=== PATIENT | female | born 1960 | race Caucasian/White ===

== ENCOUNTER 2024-01-19 21:16 | Inpatient (IN) | payer BC, SELFPAY ==
[2024-01-19 17:31] VITALS: BP 135/77
[2024-01-19 17:58] VITALS: BMI 44.3
[2024-01-19 18:11] VITALS: BP 126/69
[2024-01-19 18:22] LABS: % Basophils 0.6 % (0-2); % Eosinophils 0.9 % (0-6); % Immature Granulocytes 1.1 % (0-0.5); % Lymphocytes 11.1 % (20.5-51.1); % Monocytes 6.9 % (1.7-9.3); % Neutrophils 79.4 % (42.2-75.2); Absolute Basophils 0.1 10^3/uL (0-0.2); Absolute Eosinophils 0.1 10^3/uL (0-0.7); Absolute Immature Granulocytes 0.1 10^3/uL (0-0.05); Absolute Lymphocytes 1.2 10^3/uL (1.2-3.4); Absolute Monocytes 0.7 10^3/uL (0.1-0.6); Absolute Neutrophils 8.3 10^3/uL (1.4-6.5); Hematocrit 37.7 % (37.0-47.0); Hemoglobin 12.1 g/dL (12.0-16.0); Mean Corp Hgb Conc. 32.1 g/dL (33.0-37.0); Mean Corpuscular Hgb 27.5 pg (27.0-31.0); Mean Corpuscular Volume 85.7 fL (81.0-99.0); Mean Platelet Volume 8.9 fL (7.4-10.4); Nucleated Red Blood Cells % 0 %; Platelet Count 316 10^3/uL (130-400); Red Cell Dist. Width 15.8 % (11.5-14.5); White Blood Cell Count 10.5 10^3/uL (4.8-10.8)
[2024-01-19 18:37] LABS: ALT (SGPT) 19 U/L (0-35); AST (SGOT) 29 U/L (14-36); Albumin 3.8 g/dl (3.5-5.0); Alkaline Phosphatase 131 U/L (38-126); Blood Urea Nitrogen 28 mg/dl (7-17); Calcium 9.4 mg/dl (8.4-10.2); Carbon Dioxide 32 mmol/L (22-30); Chloride 100 mmol/L (98-107); Estimated Creatinine Clearance 60 ml/min; Glucose 132 mg/dl (70-99); Potassium 3.4 mmol/L (3.5-5.1); Sodium 141 mmol/L (135-145); Total Bilirubin 0.7 mg/dl (0.2-1.3); Total Protein 6.6 g/dl (6.3-8.2); eGFR 57.17
--- NOTE | 2024-01-19 20:20 | ED.GENMED ---
History of Present Illness
General
Chief Complaint: Breathing Problem
Source: patient and family
Exam Limitations: none
Time Seen by Provider: 01/19/24 18:05
Nursing documentation reviewed up to this point in time: agreed with
Travel History
Have you had any contact with someone who has COVID-19?: No
Do you have any symptoms of coronavirus? Fever > 100 degrees, chills, cough, shortness of breath, sore throat, loss of taste or smell, muscle aches, or headache?: No
History of Present Illness
History of Present Illness:
63-year-old female past medical history of COPD hypertension CHF previous smoker presenting to the emergency department today with concerns of worsening shortness of breath over the past 2 weeks. Denies any fevers or recent additional illness
Past History
Past History
ED Past Medical History: None
ED Past Surgical History: None
Social History
Tobacco: Smoker
Alcohol: None
Personal: Single
Living: with family
Employment: Employed
Review of Systems
Review of Systems
Allergies reviewed?: Yes
All Other Systems: ROS reviewed and negative except as documented in HPI and ROS
Phy Exam
Physical Exam
Physical Exam:
GENERAL: Alert , in no apparent distress
EYE: pupils equal and reactive
NECK: Supple, no significant adenopathy.
ENT: o/p clr, mmm.
CARDIAC: Regular rate and rhythm .
LUNGS: Lack of lung sounds to the left side normal lung sounds on the right
ABDOMEN: Soft, without focal tenderness, no r/g, no cvat
NEUROLOGICAL: Alert and oriented, no focal neuro deficits
SKIN: Warm and dry, skin intact.
MUSCULOSKELETAL: No edema, well perfused.
PSYCH: Normal and appropriate interaction.
Scores
Heart Failure Risk
Heart Failure Risk Score: Not Applicable
Course
Orders/Labs/Results
Orders:
Orders
01/19/24 17:57
CR Chest - 2 Views Urgent
Comment:
Reason For Exam: sob
01/19/24 18:19
CMP [Comprehensive Metabolic Panel] Urgent
Complete Blood Count/With Diff Urgent
01/19/24 18:[address] [CT Chest Pe Study] Urgent
Comment:
Reason For Exam: abnormal cxr
01/19/24 19:15
EKG [Electrocardiogram (*1)] Urgent
Reason for Study: Shortness of Breath
EKG- Treatment ONCE
Abnormal Lab Results
01/19/24
18:19
MCHC 32.1 L g/dL
(33.0-37.0)
RDW 15.8 H %
(11.5-14.5)
Abs Immat Gran (auto) 0.1 H 10^3/uL
(0-0.05)
Absolute Neuts (auto) 8.3 H 10^3/uL
(1.4-6.5)
Absolute Monos (auto) 0.7 H 10^3/uL
(0.1-0.6)
Immature Gran % 1.1 H %
(0-0.5)
Neutrophils % 79.4 H %
(42.2-75.2)
Lymphocytes % 11.1 L %
(20.5-51.1)
Potassium 3.4 L mmol/L
(3.5-5.1)
Carbon Dioxide 32 H mmol/L
(22-30)
BUN 28 H mg/dl
(7-17)
Creatinine 1.1 H mg/dL
(0.6-1.0)
Glucose 132 H mg/dl
(70-99)
Alkaline Phosphatase 131 H U/L
(38-126)
01/19/24 18:19
01/19/24 18:19
Vital Signs
Initial and Last Documented VS:
Initial Vital Signs
Temp Pulse Resp BP Pulse Ox
98.3 F 94 22 135/77 78
01/19/24 17:31 01/19/24 17:31 01/19/24 17:31 01/19/24 17:31 01/19/24 17:31
Last Documented Vital Signs
Temp Pulse Resp BP Pulse Ox
98.3 F 93 21 126/69 95
01/19/24 17:31 01/19/24 18:15 01/19/24 18:15 01/19/24 18:11 01/19/24 18:15
MDM/Problems Addressed
MDM/Problems Addressed:
63-year-old female presenting to the emergency department today with concerns of worsening shortness of breath over the past 2 weeks. Upon arrival pulse ox in the 70s was placed on 4 L nasal cannula with to the mid 90s. Vital signs otherwise
normal. Patient in no distress. Speaking full sentences. Labs showing elevated BUN and creatinine. Initial x-ray showing significant effusion to the left side CT scan ordered showing a mass with surrounding effusion. Patient was notified of
this and admitted stable on nasal cannula here.
*Critical Care Note
Total Time (30-74mins, 75-104mins- exclusive of procedures): Not Applicable
ED Attending Note
-
Portions of this chart may have been created with voice recognition software.� Occasional wrong word or��sound alike� substitutions may have occurred due to the inherent limitations of voice recognition software.
Discharge Plan
Departure
Patient Disposition: Admit
Date of Disposition: 01/19/24
Time of Disposition: 20:31
Admit to: Telemetry
Admit to doctor: Enedinay
Presentation/result/management discussed w/ accepting MD/DO: Hospitalist
Patient with high blood pressure during this ER visit?: No
Condition: Good
Covid-19: Not Applicable
Discharge Problem:
Lung mass, Hypoxemia, Pleural effusion
Prescriptions:
No Action
hydralazine 10 mg Tablet
10 mg PO BID Qty: 60 0RF
docusate sodium 100 mg Capsule
100 mg PO BIDPRN PRN (Reason: constipation) Qty: 0 0RF
colchicine 0.6 mg Tablet
0.6 mg PO DAILY Qty: 30 0RF
polyethylene glycol 3350 [HealthyLax] 17 gram Powder In Packet
17 g PO DAILY Qty: 0 0RF
amlodipine 10 mg Tablet
10 mg PO BID Qty: 60 0RF
levothyroxine 75 mcg Tablet
75 mcg PO DAILY@0700 Qty: 30 0RF
Combivent Respimat 20-100 mcg/actuation mist
1 puff inhalation QID Qty: 4 0RF
Referrals:
UNKNOWN - PT DOES,NOT KNOW [Family Provider] -
Interventions
Interventions:
*Risk Screen - Suicide Last Done: 01/19/24 17:31
*General Assessment Last Done: 01/19/24 17:31
*Neglect/Abuse Screening Last Done: 01/19/24 17:31
Discharge Date and Time
Print Language: MACEDONIAN
--- NOTE | 2024-01-19 21:00 | HPS.HSE ---
Family Physician
-
Family Physician: NOT KNOW UNKNOWN - PT DOES
Chief Complaint
-
SoB
History of Present Illness
63-year-old female past medical history of COPD hypertension CHF previous smoker presenting to the emergency department today with concerns of worsening shortness of breath over the past 2 weeks.
HPI
63M former smoker HX COPD, CHF seen at ER for SoB and Hypoxia
Chr SoB
- increased exertional dyspnea for last 2 weeks
- No conversation al dyspnea upon my exam
- cough
- associated abdominal heaviness
- POx 79 % on RA at ER
- Denies any fevers or recent additional illness
- wt Loss 8lbs over 2 weeks , recently decreased appetite
Medical History
Past Medical History
Past Medical History: Reports CHF, COPD and HTN
Past Surgical History: Reports None
Social History
Tobacco: Former Smoker
Alcohol: None
Drug: None
Personal: Single
Living: With Family
Family History
Family History: Not pertinent
Allergies / Home Medications
Allergies reflects when Allergies were last updated in [employer].
Home Medications with original date entered in [employer]
Allergy/Medication List:
Allergies
Allergy/AdvReac Type Severity Reaction Status Date / Time
No Known Allergies Allergy Verified 01/19/24 17:30
Home Medications
amlodipine 10 mg tablet 10 mg PO BID #60 tabs 12/08/22
colchicine 0.6 mg tablet 0.6 mg PO DAILY #30 tabs 12/08/22
docusate sodium 100 mg capsule 100 mg PO BIDPRN PRN constipation #0 caps 12/08/22
hydralazine 10 mg tablet 10 mg PO BID #60 tabs 12/08/22
ipratropium 20 mcg-albuterol 100 mcg/actuation mist for inhalation (Combivent Respimat) 1 puff inhalation QID #4 grams 12/08/22
levothyroxine 75 mcg tablet 75 mcg PO DAILY@0700 #30 tabs 12/08/22
polyethylene glycol 3350 17 gram oral powder packet (HealthyLax) 17 g PO DAILY #0 ea 12/08/22
Review of Systems
-
Constitutional: Reports No Symptoms
EENT: Reports No Symptoms
Respiratory: Reports See HPI
Cardiac: Reports No Symptoms
Abdomen/GI: Reports No Symptoms
: Reports No Symptoms
Musculoskeletal: Reports No Symptoms
Skin: Reports No Symptoms
Neurological: Reports No Symptoms
Endocrine: Reports No Symptoms
Hematologic/Lymphatic: Reports No Symptoms
Psych: Reports No Symptoms
Physical Exam
Vital Signs
Vital Signs
Temp Pulse Resp BP Pulse Ox
98.3 F 93 21 126/69 95
01/19/24 17:31 01/19/24 18:15 01/19/24 18:15 01/19/24 18:11 01/19/24 18:15
Physical Exam
General: No Apparent Distress and Comfortable
HEENT: NormoCephalic, Anicteric, Moist mucous membranes and PERRLA
Respiratory: Decreased Breath Sounds (quir BS over Lt lung field ) and Other
Cardiac: S1/S2 and Regular Rhythm
Breast: Deferred by me
GI: Soft, Non Tender, Non Distended and Normal Bowel Sounds
Rectal: Deferred by Provider
Genito-urinary: Deferred by me
Musculoskeletal: No Edema
Skin: Warm, Dry and Rash
Neuro: AO x 3 and Nonfocal/grossly intact
Psych: Calm
Laboratory Results
-
01/19/24 18:19
01/19/24 18:19
Laboratory Results
Total Bilirubin 0.7 mg/dl (0.2-1.3) 01/19/24 18:19
AST 29 U/L (14-36) 01/19/24 18:19
ALT 19 U/L (0-35) 01/19/24 18:19
Alkaline Phosphatase 131 U/L (38-126) H 01/19/24 18:19
Data Reviewed
-
Diagnostic Radiology: Report Reviewed by me
CT Scan: Report Reviewed by me
Lab Data: Labs Reviewed by me
Old Records: Reviewed
Impression/Plan
-
Reviewed VS: afebrile HR 90s BP 135/77 RR 18- 21 POx 78 % on RA. low 90s
Data
Unremarkable CBC
K 3.4
BUN 28
Cr 1.1
eGFR 57
BG 132
nl LFTs
AKP 131
CXR
There is near complete opacification of the left hemithorax with slight shift of mediastinal structures to the right.
I favor that this is secondary to large left pleural effusion with underlying compressive atelectasis
Bronchial obstruction with postobstructive atelectasis is included in the differential diagnosis
CT chest with intravenous contrast material would be useful for further evaluation.
CT Chest Pe Study
There is a 13 cm heterogeneous mass at the left hilum extending into the medial aspect of the left upper lung which is high-level suspicion for pulmonary malignancy. The mass is associated with:
-Complete atelectasis of the left lung
-Large left pleural effusion
-Several pleural-based probably malignant soft tissue implants in the lower left lung posteriorly
-Mediastinal lymphadenopathy
-Encasement and partial obstruction of the left main pulmonary artery, left upper lobe pulmonary artery and left lower lobe pulmonary artery
-Encasement and partial obstruction of the left main bronchus as well as left upper lobe and left lower lobe bronchi
-Mild shift of mediastinal structures to the right
Left thoracentesis, biopsy and/or PET scan could be considered for further evaluation
2). 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
Last hospitalist admission: 11/28/22 - 12/08/22
P Dxs: Acute hypoxemic/hypercapnic respiratory failure, shock, essential hypertension, acute kidney injury, mild nontraumatic rhabdomyolysis, moderate to large pericardial effusion which is loculated, hypothermia, acute chronic obstructive pulmonary
disease exacerbation, hypothyroidism new, morbid obesity, tobacco dependence
ASSESSMENT & PLAN
Pending Rx reconciliation
large Lt hilar Lung mass with local invasion, mediastinal LAD: Probably metastatic lung CA
- associated wt 8lbs wt loss over last 2weeks
- associated complete atelectasis of the left lung and Large left pleural effusion
- associated acute hypoxic RF
- For Dx-tic Rxtic Lt Thoracentesis
- IR consult
- Pul consult
Essential HTN
- cont SEWING PATTERN LAYOUT TECHNICIAN Amlodipine and Hydralazine
Hypothyroidism
- cont. SEWING PATTERN LAYOUT TECHNICIAN LT4
HX COPD
- cont OP Meds
HX Gout
HX Pericardial effusion
- cont SEWING PATTERN LAYOUT TECHNICIAN Colchicine
Morbid obesity due to excess calories
DVT Px: LMWH
Code: full code
IP TLM
[2024-01-19 22:26] VITALS: BP 141/80; BMI 43.6
[2024-01-19 22:49] LABS: Glucose - Point of Care 119 mg/dl (70-99)
[2024-01-19 22:54] LABS: LDH 289 U/L (120-246)
[2024-01-19 23:04] VITALS: BMI 43.6
--- NOTE | 2024-01-19 23:23 | PTCARENOTE ---
Receive pt from ER. Pt alert oriented X3, calm, cooperative, and in no distress. Pt assist X1 to her bed, steady. Pt oriented to the room, call duarte within reach. Pt on NSR on telemonitor. VSS (T=97.7, HR=87, RR=20, TC=611/80, SpO2=95% on 4L NC). Pt
denies fever, chiills, or chest pain, but admits to minimum dyspnea on exertion. Advise the pt to call if worsening resp status. Will keep monitoring the pt closely.
[2024-01-20] VITALS (9 sets, daily range): BP systolic 94–140; BP diastolic 56–74; BMI 43.6
[2024-01-20] MEDS: SYNTHROID 75 MCG PO (05:48)
[2024-01-20 06:29] LABS: Hematocrit 37.6 % (37.0-47.0); Mean Corp Hgb Conc. 31.9 g/dL (33.0-37.0); Mean Corpuscular Hgb 27.5 pg (27.0-31.0); Mean Corpuscular Volume 86.2 fL (81.0-99.0); Mean Platelet Volume 8.7 fL (7.4-10.4); Platelet Count 312 10^3/uL (130-400); Red Blood Cell Count 4.36 10^6/uL (4.20-5.40); Red Cell Dist. Width 15.9 % (11.5-14.5)
[2024-01-20 06:56] LABS: ALT (SGPT) 17 U/L (0-35); AST (SGOT) 26 U/L (14-36); Albumin 3.4 g/dl (3.5-5.0); Alkaline Phosphatase 121 U/L (38-126); Blood Urea Nitrogen 27 mg/dl (7-17); Calcium 9.3 mg/dl (8.4-10.2); Carbon Dioxide 32 mmol/L (22-30); Chloride 100 mmol/L (98-107); Estimated Creatinine Clearance 51 ml/min; Glucose 102 mg/dl (70-99); Potassium 3.5 mmol/L (3.5-5.1); Sodium 140 mmol/L (135-145); Total Bilirubin 0.6 mg/dl (0.2-1.3); eGFR 46.78
[2024-01-20 07:18] LABS: TSH 3.19 uIU/ml (0.47-4.68)
[2024-01-20] MEDS: DESENEX/MITRAZOL/ZEASORB TOPICAL ×2 (08:15→20:10)
[2024-01-20 09:34] LABS: Body Fluid Mononuclear 91.1 %; Body Fluid Polymorphonuclear 8.9 %; Body Fluid WBC 1044 /CUMM
[2024-01-20 09:38] LABS: Body Fluid pH 7.46
[2024-01-20 09:45] LABS: Body Fluid Second Tech AMA
--- NOTE | 2024-01-20 09:49 | CON.PUL ---
Consultation
Consultation Request
Date/Time Consultation Requested: 01/20/2024-8 AM
Date/Time Consultation Performed: 01/20/2024-8:30 AM
Requesting Provider: Hospitalist
Performing Provider: Dr. Smith
Reason for Consultation: Shortness of breath
Medical History
-
Chief Complaint: Shortness of breath
History of Present Illness:
63-year-old female patient who quit smoking 1 year ago and carries a diagnosis of COPD followed by Dr. Portillo as well as hypertension and CHF presented with progressive shortness of breath over the last 2 weeks noted to have large left pleural
effusion and pulmonary consulted for shortness of breath/pleural effusion 01/20/2024. I am seeing her as she returned from 2 L thoracentesis and her shortness of breath is improved. She states that over the last 2 weeks her shortness of breath is
progressed and she was more 'winded'. She admits to forgetting to get her CT low-dose lung cancer screening lung scan when it was previously recommended. She quit smoking 1 year ago. She is on Trelegy and followed by Dr. Portillo. She offers no
complaints of chest pain, chest tightness, wheezing, productive cough, mopped assist, abdominal pain, nausea, vomiting, leg swelling or weakness.
Past Medical History
Past Medical History: None (COPD. Former ydyvch-13-hppy-year quit 62 years oldCHF preserved EF. Morbid obesity. FAYE suspected. Postnasal drip. Allergies. Hypertension. Chronic kidney disease. Hypothyroid. Pericardial effusion 11/2022)
Social History
Tobacco: Former Smoker ([id number] quit 18 years old)
Alcohol: None
Drug: None
Personal: Single
Living: With Family
Family History
Family History: Other (Father-CAD and hypertension. Mother-thyroid disease)
Allergies / Home Medications
Allergies
Allergy/AdvReac Type Severity Reaction Status Date / Time
No Known Allergies Allergy Verified 01/19/24 17:30
Home Medications
�Medication �Instructions �Recorded �Confirmed �Last Taken �Type
amlodipine 10 mg tablet 10 mg PO BID #60 tabs 12/08/22 Unknown Rx
colchicine 0.6 mg tablet 0.6 mg PO DAILY #30 tabs 12/08/22 Unknown Rx
docusate sodium 100 mg capsule 100 mg PO BIDPRN PRN constipation 12/08/22 Unknown Rx
#0 caps
hydralazine 10 mg tablet 10 mg PO BID #60 tabs 12/08/22 Unknown Rx
ipratropium 20 mcg-albuterol 100 1 puff inhalation QID #4 grams 12/08/22 Unknown Rx
mcg/actuation mist for inhalation
(Combivent Respimat)
levothyroxine 75 mcg tablet 75 mcg PO DAILY@0700 #30 tabs 12/08/22 Unknown Rx
polyethylene glycol 3350 17 gram 17 g PO DAILY #0 ea 12/08/22 Unknown Rx
oral powder packet (HealthyLax)
Review of Systems
-
Unable to Obtain full review of systems at this time due to: Other (Per HPI)
Vitals / Labs / Diagnostic Testing
Vital Signs
Temp Pulse Resp BP Pulse Ox
97.9 F 85 20 121/67 96
01/20/24 08:16 01/20/24 08:51 01/20/24 08:51 01/20/24 08:51 01/20/24 08:16
Lab Data
01/20/24 04:53
01/20/24 04:53
Diagnostic Testing:
Physical Exam
-
Exam:
Well-nourished and well-developed in no apparent distress
HEENT-atraumatic, normocephalic
Neck-supple, no JVD, no bruit
Heart-regular rate and rhythm-no murmurs, rubs or gallops
Chest with diminished breath sounds on the left with some crackles as well as crackles on the right, overall diminished breath sounds, prolonged expiratory time and no wheezes
Back without CVA tenderness
Abdomen-soft, nontender, nondistended, no hepatosplenomegaly
Extremities-no cyanosis, clubbing, edema
Integument-intact, no rashes, lesions or ecchymosis
Neurology-alert and oriented, nonfocal motor and sensory exam
Assessment
-
63-year-old female patient who quit smoking 1 year ago and carries a diagnosis of COPD followed by Dr. Portillo as well as hypertension and CHF presented with progressive shortness of breath over the last 2 weeks noted to have large left pleural
effusion and pulmonary consulted for shortness of breath/pleural effusion 01/20/2024.
Assessment
Severe shortness of breath related to large left pleural effusion and underlying COPD
Left pleural effusion
Thoracentesis 01/20/24--2 L-cultures and cytology pending
Mild hyperglycemia
Conditions present prior to admission:
Hospitalization 11/2022-hypoxemic hypercapnic respiratory failure, shock, MONICA moderate to large pericardial effusion and COPD exacerbation
COPD.
Former nlujnc-08-rygg-year quit 62 years old
CHF preserved EF.
Morbid obesity-no FAYE on PSG 01/2023-significant nocturnal hypoxemia
Postnasal drip.
Allergies.
Hypertension.
Chronic kidney disease.
Hypothyroid.
Pericardial effusion 11/2022
Plan
Respiratory decompensation related to large left pleural effusion and atelectasis as well as a lung mass in a patient with underlying COPD
Radiographs, office records and recommendations, and echocardiograms are summarized below
Supplemental oxygen-assess discharge supplemental oxygen needs prior to discharge
Incentive spirometry
Nebulizers
Patient is on outpatient Trelegy
Mucolytic's if needed
Mucus clearing devices if needed
Aspiration precautions
Thoracentesis recommended-performed 01/20/24--2 L
Check cultures and cytology
If pleural fluid evaluation is unrevealing for malignancy then biopsy will be required
Eventual outpatient PET scan
Dr. Smith reviewed with daughter and patient about high potential for underlying malignancy and need for definitive diagnosis
Dr. Smith also warned patient and daughter of potential for rapid reaccumulation of pleural fluid, need for repeat thoracentesis and possible Pleurx catheter placement
Suspect will need oncological evaluation
DVT prophylaxis-on Lovenox
Nutrition
Early mobilization
She was given a CT low-dose lung cancer screening prescription 12/28/2022 by the pulmonary office-never obtained scan, was encouraged to obtain CT at 02/13/2023 appointment
She was last seen by Dr. Portillo 02/13/2023 and has an appointment to see Mary Ann Garza NP 01/23/2024 at 3:45 PM-will need to delay this appointment unless she is out of the hospital in the next 24 hours
Diagnostic data:
Chest x-ray 11/30/2022-moderate cardiomegaly with suspected mild interstitial cardiogenic pulm edema, large amount of opacification left lower lobe probable compressive atelectasis adjacent to small to moderate left pleural effusion
Chest x-ray 01/19/2024-near complete opacification left hemithorax with shift of mediastinal structures to the right favoring large pleural effusion with underlying compressive atelectasis
Chest x-ray 01/20/2024-improved aeration left lung, loculated pleural effusion
CT chest 01/19/24-13 cm heterogeneous mass left hilum extending into the medial aspects of the left upper lobe with high level suspicion for pulmonary malignancy and masses associated with complete atelectasis of the left lung, large left pleural
effusion and several pleural-based probable malignant soft tissue implants along with mediastinal lymphadenopathy and encasement and partial obstruction left main pulmonary artery, left upper lobe pulmonary artery and left lower lobe pulmonary
artery and probable 3 cm adrenal metastases and probable 3 cm area of malignant adenopathy
Echo 12/03/22: Limited echo. Normal LV size and function. EF 60-65%. Mild concentric LVH. Moderate to large pericardial effusion without evidence of hemodynamic compromise.
Echocardiogram 01/19/2023-EF 55-60%, small to moderate pericardial effusion
PFTs 02/13/23: FEV1 1.84L 78%, FVC 2.59L 85%, ratio 71.� Post FEV1 1.8L 76%.� No significant bronchodilator response.� TLC 4.66L 101%, DLCO 47% (spirometry mildly reduced suggesting restriction, TLC normal, there is a moderate diffusion impairment)
PSG 01/29/23: AHI 1.0, O2 negar 78%, mild snoring. TST 360 mins, SE 76.8%
Data Reviewed
-
PFT: Report reviewed by me
EKG: Report reviewed by me
Radiology: Image personally visualized and interpreted and Report reviewed by me
CT Scan: Image personally visualized and interpreted and Report reviewed by me
Medical Tests (Nuc Med, Echo etc): Report reviewed by me
Labs: Labs reviewed by me
Old Records: Reviewed
Total Time Spent with Patient (in minutes): 65
[2024-01-20 10:53] LABS: Body Fluid Amylase 67 U/L; Body Fluid Glucose 111 mg/dl; Body Fluid LDH 253 U/L; Body Fluid Protein 4.5 g/dl; Body Fluid Triglycerides 50 mg/dl
--- NOTE | 2024-01-20 12:14 | W.PN.HOSP.TC ---
Today's Communication/Plan
-
see plan
Assessment / Plan
Assessment / Plan
CXR
There is near complete opacification of the left hemithorax with slight shift of mediastinal structures to the right.
I favor that this is secondary to large left pleural effusion with underlying compressive atelectasis
Bronchial obstruction with postobstructive atelectasis is included in the differential diagnosis
CT chest with intravenous contrast material would be useful for further evaluation.
CT Chest Pe Study
There is a 13 cm heterogeneous mass at the left hilum extending into the medial aspect of the left upper lung which is high-level suspicion for pulmonary malignancy. The mass is associated with:
-Complete atelectasis of the left lung
-Large left pleural effusion
-Several pleural-based probably malignant soft tissue implants in the lower left lung posteriorly
-Mediastinal lymphadenopathy
-Encasement and partial obstruction of the left main pulmonary artery, left upper lobe pulmonary artery and left lower lobe pulmonary artery
-Encasement and partial obstruction of the left main bronchus as well as left upper lobe and left lower lobe bronchi
-Mild shift of mediastinal structures to the right
Left thoracentesis, biopsy and/or PET scan could be considered for further evaluation
2). 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
ASSESSMENT & PLAN
large Lt hilar Lung mass with local invasion, mediastinal LAD: Probably metastatic lung CA
- associated wt 8lbs wt loss over last 2weeks
- associated complete atelectasis of the left lung and Large left pleural effusion
- associated acute hypoxic RF
-s/p thoracentesis this AM; F/U cytology
-appreciate Pulmonary consult
Eventual outpatient PET scan
-home O2 testing tomorrow AM
Essential HTN
- cont CREDIT UNION EXAMINER Amlodipine and Hydralazine
Hypothyroidism
- cont. CREDIT UNION EXAMINER LT4
HX COPD
- cont OP Meds
HX Gout
HX Pericardial effusion
- cont CREDIT UNION EXAMINER Colchicine
Morbid obesity due to excess calories
DVT Px: LMWH
Code: full code
IP TLM
Anticipated Discharge: 24 - 48 hours
Subjective/Interval History
-
Date of Service: January 20, 2024
feeling better after thoracentesis
Objective Data
-
Labs:
Laboratory Results
01/20/24
04:53
WBC 9.0
Hgb 12.0
Hct 37.6
Plt Count 312
Sodium 140
Potassium 3.5
Chloride 100
Carbon Dioxide 32 H
BUN 27 H
Creatinine 1.3 H
Glucose 102 H
Calcium 9.3
Total Bilirubin 0.6
AST 26
ALT 17
Alkaline Phosphatase 121
Vital Signs:
Vital Signs
Temp Pulse Resp BP Pulse Ox
98 F 88 18 119/67 95
01/20/24 11:10 01/20/24 11:10 01/20/24 11:10 01/20/24 11:10 01/20/24 11:10
I&O
01/19/24 01/20/24 01/21/24
06:59 06:59 06:59
Intake Total 480 / 480
Output Total 400 / 400
Balance 80 / 80
Review of Systems
-
History Source: Patient
All other systems: Reviewed and negative
Physical Exam
-
General: Well Developed, Well Nourished and No Apparent Distress
HEENT: Normocephalic, Atraumatic and Oxygen
Respiratory: Decreased Breath Sounds; Negative Wheezes
Cardiac: Regular Rhythm and S1/S2; Negative Murmur
GI: Soft, Nontender, Nondistended and Normal Bowel Sounds
Musculoskeletal: No Clubbing, No Cyanosis and No Edema
Neuro: Awake
Psych: Calm
Data Reviewed
-
Diagnostic Radiology: Report Reviewed by me
Labs: Labs Reviewed by me
[2024-01-20] MEDS: LASIX 40 MG PO (15:27)
[2024-01-20] MEDS: NORVASC 10 MG PO (16:41)
--- NOTE | 2024-01-20 17:23 | W.PN.HOSP.TC ---
Today's Communication/Plan
-
see bold
Assessment / Plan
Assessment / Plan
Gen: NAD, AAOx3.
Eyes: EOMI, PERRLA, no scleral icterus.
Neck: supple.
CV: tachy, irreg/irreg, +S1/S2, no m/r/g.
Resp: Decreased breath sounds in the left base, faint rales in the right base
Abd: +BS, soft, NT, ND
Skin: No rashes.
Neuro: CN 2-12 intact, non-focal.
Psych: Normal mood and affect.
CXR: Near complete opacification of the left hemithorax with slight shift of mediastinal structures to the right. I favor that this is secondary to large left pleural effusion with underlying compressive atelectasis
Bronchial obstruction with postobstructive atelectasis is included in the differential diagnosis. CT chest with intravenous contrast material would be useful for further evaluation.
CTA chest:
-13 cm heterogeneous mass at the left hilum extending into the medial aspect of the left upper lung which is high-level suspicion for pulmonary malignancy. The mass is associated with:
-Complete atelectasis of the left lung
-Large left pleural effusion
-Several pleural-based probably malignant soft tissue implants in the lower left lung posteriorly
-Mediastinal lymphadenopathy
-Encasement and partial obstruction of the left main pulmonary artery, left upper lobe pulmonary artery and left lower lobe pulmonary artery
-Encasement and partial obstruction of the left main bronchus as well as left upper lobe and left lower lobe bronchi
-Mild shift of mediastinal structures to the right
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
Atrial fibrillation with rapid response:
-ECG, read by me, shows atrial fibrillation. As per discussion with nursing patient has had tachycardia. Currently she is in the 110s.
-start cardizem gtt, titrate as per protocol
-start Eliquis
-check echo
-cont Coreg as previously ordered for now
-c/s cardiology
-transfer to IMU
Acute hypoxemic respiratory insufficiency due to likely Metastatic Lung CA:
-imaging above (large L hilar Lung mass with local invasion, mediastinal LAD)
-s/p 01/20/24 L thoracentesis for 2000cc serosanguineous fluid. pH 7.46, WBC 1044, Prot 4.5, LDH 253. Follow cytology.
-afebrile, no leukocytosis, no current concern for infection
Other problems:
Essential HTN: cont Norvasc/Coreg
Hypothyroidism: cont Levoxyl
COPD: not in acute exac, cont Spiriva/Striverdi
Gout: cont colchicine
h/o Pericardial effusion: cont colchicine
Morbid obesity due to excess calories
FULL/Eliquis
Total critical care time spent = 34 min (managing new afib with RVR with cardizem gtt, initiating Eliquis, upgrading level of care)
Anticipated Discharge: 24 - 48 hours
Subjective/Interval History
-
Date of Service: January 20, 2024
Called to bedside with concerns for afib on monitor. Patient reports some mild shortness of breath but this is unchanged. Denies chest pain.
Objective Data
-
Labs:
Laboratory Results
01/20/24
04:53
WBC 9.0
Hgb 12.0
Hct 37.6
Plt Count 312
Sodium 140
Potassium 3.5
Chloride 100
Carbon Dioxide 32 H
BUN 27 H
Creatinine 1.3 H
Glucose 102 H
Calcium 9.3
Total Bilirubin 0.6
AST 26
ALT 17
Alkaline Phosphatase 121
Vital Signs:
Vital Signs
Temp Pulse Resp BP Pulse Ox
98.3 F 95 18 137/73 92
01/20/24 15:05 01/20/24 16:41 01/20/24 15:05 01/20/24 16:41 01/20/24 15:05
I&O
01/19/24 01/20/24 01/21/24
06:59 06:59 06:59
Intake Total 480 / 480
Output Total 400 / 400
Balance 80 / 80
[2024-01-20] MEDS: CARDIZEM 125 IV (17:48)
--- NOTE | 2024-01-20 18:08 | PTCARENOTE ---
Addendum entered by Marlene Avalos RN 01/20/24 18:20:
A fib started on Tel 1615.
Original Note:
1635 Pt noted to be in A-Fib on Telemetry. 12 Lead EKG done an confirmed A-fib. HR range 90 to 140 an sustaining intermittently. B/P 137/73. O2 saturation 93 % on 3L of O2 via nasal cannula. Dr. Johnson made aware. Dr Mansfield evaluated patient. Pt
started on a Cardizem Drip as ordered. Pt for transferred to IMU. Made patient comfortable. Cont to assess patient status.
[2024-01-20] MEDS: COREG 12.5 MG PO (20:08)
[2024-01-20] MEDS: ELIQUIS 5 MG PO (20:09)
[2024-01-21] VITALS (12 sets, daily range): BP systolic 90–123; BP diastolic 53–91; BMI 42.7; BMI 42.5
--- NOTE | 2024-01-21 00:39 | PTCARENOTE ---
Received pt at change of shift. Pt was in AFib on the monitor with cardizem gtt running at 5 mg/hr. Pt has since converted to NSR. EKG obtained and reported to STENCILER. STENCILER confirmed to keep cardizem gtt running at 5 mg/hr. HR currently high 60s
to low 70s. Pt offers no complaints at this time. Resting in bed with call duarte in reach.
[2024-01-21] MEDS: SYNTHROID 75 MCG PO (05:33)
[2024-01-21] MEDS: SPIRIVA RESPIMAT 2.5 MCG 2 PUFF INH (07:56)
[2024-01-21] MEDS: STRIVERDI RESPIMAT 2 PUFF INH (07:56)
--- NOTE | 2024-01-21 08:08 | W.PN.HOSP.TC ---
Today's Communication/Plan
-
repeat CXR
TTE
Eliquis - CM consult for cost
continue RISK MANAGEMENT INTERN Coreg
F/U cardiology recs
Assessment / Plan
Assessment / Plan
Gen: NAD, AAOx3.
Eyes: EOMI, PERRLA, no scleral icterus.
Neck: supple.
CV: tachy, irreg/irreg, +S1/S2, no m/r/g.
Resp: Decreased breath sounds in the left base, faint rales in the right base
Abd: +BS, soft, NT, ND
Skin: No rashes.
Neuro: CN 2-12 intact, non-focal.
Psych: Normal mood and affect.
CXR: Near complete opacification of the left hemithorax with slight shift of mediastinal structures to the right. I favor that this is secondary to large left pleural effusion with underlying compressive atelectasis
Bronchial obstruction with postobstructive atelectasis is included in the differential diagnosis. CT chest with intravenous contrast material would be useful for further evaluation.
CTA chest:
-13 cm heterogeneous mass at the left hilum extending into the medial aspect of the left upper lung which is high-level suspicion for pulmonary malignancy. The mass is associated with:
-Complete atelectasis of the left lung
-Large left pleural effusion
-Several pleural-based probably malignant soft tissue implants in the lower left lung posteriorly
-Mediastinal lymphadenopathy
-Encasement and partial obstruction of the left main pulmonary artery, left upper lobe pulmonary artery and left lower lobe pulmonary artery
-Encasement and partial obstruction of the left main bronchus as well as left upper lobe and left lower lobe bronchi
-Mild shift of mediastinal structures to the right
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
Atrial fibrillation with rapid response:
-patient with new diagnosis of afib on 01/19
-HR 110's, started on cardizem gtt
-CHADS2-Vasc score = 3 (female, HTN, heart failure). Eliquis initiated evening of 01/19
-TTE today
-TSH 3.19
-cont Coreg as previously ordered for now
-stop diltiazem gtt as patient is in sinus rhythm this AM
-c/s cardiology
-CM consult cost of Eliquis
-transfer to IMU
Acute hypoxemic respiratory insufficiency due to likely Metastatic Lung CA:
-imaging above (large L hilar Lung mass with local invasion, mediastinal LAD)
-s/p 01/20/24 L thoracentesis for 2000cc serosanguineous fluid. pH 7.46, WBC 1044, Prot 4.5, LDH 253. Follow cytology.
-afebrile, no leukocytosis, no current concern for infection
-Patient has follow up with Pulm on 01/22
Other problems:
Essential HTN: cont Norvasc/Coreg
Hypothyroidism: cont Levoxyl
COPD: not in acute exac, cont Spiriva/Striverdi
Gout: cont colchicine
h/o Pericardial effusion: cont colchicine
Morbid obesity due to excess calories
FULL/Eliquis
51 minutes spent on patient evaluation, medical decision making, coordination of care
Anticipated Discharge: Within 24 hours
Subjective/Interval History
-
Date of Service: January 21, 2024
feeling better this morning
breathing stable
felt heart beat fast with the afib
Objective Data
-
Vital Signs:
Vital Signs
Temp Pulse Resp BP Pulse Ox
98.3 F 68 18 105/53 95
01/21/24 03:58 01/21/24 06:00 01/21/24 06:00 01/21/24 06:00 01/21/24 06:00
I&O
01/20/24 01/21/24 01/22/24
06:59 06:59 06:59
Intake Total 480 / 480 480 / 480
Output Total 400 / 400
Balance 80 / 80 480 / 480
Review of Systems
-
History Source: Patient
All other systems: Reviewed and negative
Physical Exam
-
General: Well Developed, Well Nourished and No Apparent Distress
HEENT: Normocephalic, Atraumatic and Oxygen
Respiratory: Decreased Breath Sounds (left); Negative Wheezes
Cardiac: Regular Rhythm and S1/S2; Negative Murmur
GI: Soft, Nontender, Nondistended and Normal Bowel Sounds
Musculoskeletal: No Clubbing, No Cyanosis and No Edema
Neuro: Awake
Psych: Calm
Data Reviewed
-
Diagnostic Radiology: Report Reviewed by me
Labs: Labs Reviewed by me
--- NOTE | 2024-01-21 09:58 | CM ---
Addendum entered by Sheryl Avalos RN 01/21/24 12:02:
Met with patient and daughter Tatyana; provided Eliquis Free Month Card. Patient has not had a chance to call [email or web address] yet about copay assistance as she had to go for an echo. Gueritajaylon Edmond was present and relayed that her office was submitting
paperwork for copay assistance.
Plan watch for home O2 needs.
Plan home.
Original Note:
Patient with Dx pulmonary mass, rapid Afib, Acute hypoxemic respiratory insufficiency due to likely Metastatic Lung CA. O2 4L. Per nurse assessment; ambulatory in room.
Spoke with patient who resides with her daughter Tatyana in a split level house, with no KAE and 10 steps to bedroom/bath.
The patient has been independent in ADLs and ambulation.
The patient has no DME or prior VN.
PCP - Ysabel Pereira
Patient states she lost her job, and her new insurance has no prescription plan.
[facility] - [facility]
CM Consult: Tee Check Eliquis 5mg BID
Spoke with [facility]: patient does not have a prescription plan, Eliquis cost $ 619/month with a discount or $1839 for 3 months.
Spoke with patient who states she cannot afford cost of Eliquis without copay assist. Will issue her Free Month card. Provided [employer] phone # to call about coverage assistance (ph [phone]) and asked her to call today and she agrees. The
patient is inquiring how long she will be on the drug - CM advised her to ask MD.
Plan provide Eliquis Free Month Card.
Plan watch for home O2 needs.
Plan home.
[2024-01-21] MEDS: NORVASC 10 MG PO (10:00)
[2024-01-21] MEDS: COREG 12.5 MG PO ×2 (10:00→20:47)
[2024-01-21] MEDS: ELIQUIS 5 MG PO ×2 (10:00→20:47)
[2024-01-21] MEDS: LASIX 40 MG PO (10:00)
--- NOTE | 2024-01-21 10:19 | W.PN.PUL.V3 ---
Today's Communication / Plan
-
Atrial fibrillation rate control-converted back to sinus rhythm
Recheck chest [id number] additional drainage
Await cytology
Outpatient pulmonary [id number] need biopsy if cytology negative
Likely will need oncological evaluation
Assessment
-
63-year-old female patient who quit smoking 1 year ago and carries a diagnosis of COPD followed by Dr. Portillo as well as hypertension and CHF presented with progressive shortness of breath over the last 2 weeks noted to have large left pleural
effusion and pulmonary consulted for shortness of breath/pleural effusion 01/20/2024.
Assessment
Severe shortness of breath related to large left pleural effusion and underlying COPD
Left pleural effusion
Thoracentesis 01/20/24--2 L-cultures and cytology pending
Mild hyperglycemia
Conditions present prior to admission:
Hospitalization 11/2022-hypoxemic hypercapnic respiratory failure, shock, MONICA moderate to large pericardial effusion and COPD exacerbation
COPD.
Former [id number] quit 62 years old
CHF preserved EF.
Morbid obesity-no FAYE on PSG 01/2023-significant nocturnal hypoxemia
Postnasal drip.
Allergies.
Hypertension.
Chronic kidney disease.
Hypothyroid.
Pericardial effusion 11/2022
Plan
Respiratory decompensation related to large left pleural effusion and atelectasis as well as a lung mass in a patient with underlying COPD
Radiographs, office records and recommendations, and echocardiograms are summarized below
Continue supplemental oxygen as needed-attempt to wean to room air
Assess discharge supplemental oxygen needs prior to discharge
Incentive spirometry
Nebulizers
Patient is on outpatient Trelegy
Mucolytic's if needed
Mucus clearing devices if needed
Aspiration precautions
Thoracentesis recommended-performed 01/20/24--2 L-cultures negative, cytology pending
If pleural fluid evaluation is unrevealing for malignancy then biopsy will be required
Eventual outpatient PET scan
Dr. Smith reviewed with daughter 01/20/2024 and patient about high potential for underlying malignancy and need for definitive diagnosis
Dr. Smith also warned patient and daughter of potential for rapid reaccumulation of pleural fluid, need for repeat thoracentesis and possible Pleurx catheter placement
Suspect will need oncological evaluation
Recheck chest x-ray prior to discharge-May require additional drainage
Paroxysmal atrial fibrillation noted
Atrial fibrillation rate control-now has converted back to sinus rhythm
Echocardiogram pending
Cardiology evaluation pending
Consider anticoagulation
DVT prophylaxis-on Lovenox
Nutrition
Early mobilization
Reviewed with nursing as well as Dr. Johnson
She was given a CT low-dose lung cancer screening prescription 12/28/2022 by the pulmonary office-never obtained scan, was encouraged to obtain CT at 02/13/2023 appointment
She was last seen by Dr. Portillo 02/13/2023 and has an appointment to see Mary Ann Garza NP 01/23/2024 at 3:45 PM-will need to delay this appointment unless she is out of the hospital in the next 24 hours
Diagnostic data:
Chest x-ray 11/30/2022-moderate cardiomegaly with suspected mild interstitial cardiogenic pulm edema, large amount of opacification left lower lobe probable compressive atelectasis adjacent to small to moderate left pleural effusion
Chest x-ray 01/19/2024-near complete opacification left hemithorax with shift of mediastinal structures to the right favoring large pleural effusion with underlying compressive atelectasis
Chest x-ray 01/20/2024-improved aeration left lung, loculated pleural effusion
CT chest 01/19/24-13 cm heterogeneous mass left hilum extending into the medial aspects of the left upper lobe with high level suspicion for pulmonary malignancy and masses associated with complete atelectasis of the left lung, large left pleural
effusion and several pleural-based probable malignant soft tissue implants along with mediastinal lymphadenopathy and encasement and partial obstruction left main pulmonary artery, left upper lobe pulmonary artery and left lower lobe pulmonary
artery and probable 3 cm adrenal metastases and probable 3 cm area of malignant adenopathy
Echo 12/03/22: Limited echo. Normal LV size and function. EF 60-65%. Mild concentric LVH. Moderate to large pericardial effusion without evidence of hemodynamic compromise.
Echocardiogram 01/19/2023-EF 55-60%, small to moderate pericardial effusion
PFTs 02/13/23: FEV1 1.84L 78%, FVC 2.59L 85%, ratio 71.� Post FEV1 1.8L 76%.� No significant bronchodilator response.� TLC 4.66L 101%, DLCO 47% (spirometry mildly reduced suggesting restriction, TLC normal, there is a moderate diffusion impairment)
PSG 01/29/23: AHI 1.0, O2 negar 78%, mild snoring. TST 360 mins, SE 76.8%
Subjective Data
-
Date of Service:
Date of Service: January 21, 2024
Chief Complaint: Pulmonary Follow Up and Dyspnea Follow Up
Subjective:
Feels better after thoracentesis, still has some dyspnea exertion, no chest pain or abdominal pain
Review of Systems
General: Other (Per HPI)
Objective Data
Data Reviewed
Vital Signs / I&O:
Vital Signs
Temp Pulse Resp BP Pulse Ox
98.3 F 81 16 105/53 90
01/21/24 03:58 01/21/24 08:07 01/21/24 08:07 01/21/24 06:00 01/21/24 08:07
Intake and Output
01/20/24 01/21/24 01/22/24
06:59 06:59 06:59
Intake Total 480 / 480 480 / 480
Output Total 400 / 400
Balance 80 / 80 480 / 480
SaO2: 90
Nasal Cannula flow liters per minute: 4
Physical Exam
General: Respiratory Distress (n) and Comfortable
HEENT: Normocephalic, Anicteric and Moist Mucous Membranes
Cardiovascular: Regular Rhythm
Respiratory: Clear (Decreased breath sounds and prolonged expiratory time f), Wheeze (Few forced expiratory), Crackles (Rare basilar), Rhonchi (n), Non-Labored Respirations, Accessory Resp Muscle Use (n) and Stridor
GI: Soft, Non Distended and Non Tender
Neurology: Awake, Alert and No Motor Deficits
Skin: Warm, Good Color, Cyanosis (n), Jaundice (n) and Rash (n)
Labs/Micro/Reports
Lab Data
01/20/24 04:53
01/20/24 04:53
Microbiology
01/20/24 08:44 Pleural Fluid Body Fluid Culture - Preliminary
No Growth After 18-24 Hours
01/20/24 08:44 Pleural Fluid Gram Stain - Final
--- NOTE | 2024-01-21 10:31 | CON.CAR ---
Addendum entered and electronically signed by Nelson Nunez MD 01/21/24 13:04:
I saw and examined the patient.
The Hotel Supplies Salesperson's note was reviewed and I agree with the note.
Comment: Briefly, 63-year-old woman past medical history of pericardial effusion presenting with worsening dyspnea found to have left lung mass and associated pleural effusion status postthoracentesis
While here she also developed atrial fibrillation with rapid ventricular response and is subsequently converted to normal sinus rhythm
Continue home Coreg
Plan to start Eliquis for cardioembolic prophylaxis if no further procedures are planned
Check echo
Continue home p.o. Lasix dose
Original Note:
Consultation
Consultation Request
Date/Time Consultation Requested: 01/20/24 at 1727
Date/Time Consultation Performed: 01/21/24 at 1030
Requesting Provider: Dr. Johnson
Performing Provider: Dr. Nunez
Reason for Consultation: Newly diagnosed Afib, h/o pericardial effusion
Medical History
-
History of Present Illness:
Patient came to [facility] Saturday with increased SOB and was found to have a new large left hilar mass concerning for malignancy and was admitted for evaluation, but cardiology is now consulted for new Afib last night. Patient was admitted to
11/28/2022 until 12/08/2022 for acute exacerbation of COPD resulting in VDRF. During that admission cardiology was consulted for evidence of pericardial effusion on echo. It was a moderate to large pericardial effusion that was mostly prominent and
off axis apical views without obvious evidence of tamponade, the subcostal views were suboptimal. Given the location of the pericardial effusion was not felt to be approachable for pericardiocentesis. The pericardial effusion was managed with
addition of colchicine. Patient then followed up with pulmonology as an outpatient December 2022 and was recommended an outpatient CT chest for lung cancer screening. Patient has also followed up with Dr. Deng in the office as an outpatient and was
recommended a repeat echo which she completed 01/19/2023 and it showed that the pericardial effusion had improved and was now small to moderate and again no evidence of hemodynamic compromise. Patient's daughter reports that patient had sudden
shortness of breath on Saturday and was brought to ER. Patient was seen by her PCP on 01/10/2024 for symptoms of chest heaviness and congestion and this was thought to be due to recent missed doses of some of her inhalers. Unfortunately the
patient lost her job recently and after a few months of Cobra she transition to a new healthcare insurance which it turns out did not cover some of her inhalers. She was given samples of her inhalers at her PCP office, but reportedly did not have
any improvement and then was abruptly short of breath on Saturday prompting ER evaluation. In the ER there was evidence of a large left hilar lung mass with local invasion causing complete atelectasis of the left lung and encasement/partial
obstruction of the left pulmonary arteries in the left main bronchus as well as the left upper lobe and left lower lobe bronchi. Patient is undergoing evaluation for this and had a large left pleural effusion drained for 2 L today. Cardiology is
consulted for evidence of rapid A-fib overnight last night. The patient felt palpitations and nursing noted rapid A-fib on telemetry. The patient was placed on a Cardizem drip and then spontaneously converted to sinus rhythm. Patient remains in
sinus rhythm now.
PMH:
COPD
Former smoker
Previous admission for VDRF, AE COPD, CHF and pericardial effusion 11/28/22 until 12/08/22
h/o moderate to large pericardial effusion loculated and lateral and unable to to be approached for pericardiocentesis 12/04/23
CKD 3b
Chronic HFpEF
Past Medical History
Past Medical History: Other (in HPI)
Past Surgical History: None
Social History
Tobacco: Former Smoker (quit 2022, prior to that smoked 1 ppd for 30-40 years)
Alcohol: None
Drug: None
Living: With Family
Family History
Family History: Cancer (father with lung CA)
Allergies / Home Medications
Allergy/AdvReac Type Severity Reaction Status Date / Time
No Known Allergies Allergy Verified 01/19/24 17:30
�Medication �Instructions �Recorded �Confirmed �Type
levothyroxine 75 mcg tablet 75 mcg PO DAILY@0700 #30 tabs 12/08/22 01/20/24 Rx
Anoro Ellipta 62.5 mcg inhalation Lung/Breathing 01/20/24 History
Issues
amlodipine 10 mg tablet 10 mg PO Daily Blood Pressure 01/20/24 01/20/24 History
carvedilol 12.5 mg PO BID Blood Pressure 01/20/24 01/20/24 History
furosemide 40 mg PO Daily Fluid 01/20/24 01/20/24 History
Retention/Swelling
Review of Systems
-
History Source: Patient and Family (daughter, Lauren, in room helps with HPI)
All other systems: Negative unless noted
Physical Exam
Vital Signs
Temp Pulse Resp BP Pulse Ox
98.3 F 81 16 105/53 90
01/21/24 03:58 01/21/24 08:07 01/21/24 08:07 01/21/24 06:00 01/21/24 10:19
GEN: NAD. AAOx3
HEENT: EOMI, MMM
LUNGS: Decreased BS left worse than right. Slight expiratory wheeze.
CV: Reg, S1/S2, no murmur
ABD: soft, BS+, NT/ND
EXT: No clubbing, cyanosis, lesions or edema B/L
NEURO: Gross non-focal
SKIN: Warm, dry and pink. No rash
Lab Results
01/20/24 04:53
01/20/24 04:53
Impression / Plan
-
PCP: Dr. Ysabel Pereira
Cardiology: Dr. Deng
Pulm: Dr. Dodie Portillo
Impression:�
Acute hypoxemic respiratory failure
New large left hilar lung mass with local invasion causing complete atelectasis of left lung and encasement/partial obstruction of the left pulmonary arteries and left main bronchus as well as OFELIA and LLL bronchi 01/20/24
Large left pleural effusion
s/p left thoracentesis with 2 L removed 01/21/24
Newly diagnosed Afib with RVR 01/20/24
spontaneously converted to SR 01/20/24
New start to chronic Eliquis OAC 01/20/24
COPD
Former smoker
Previous admission for VDRF, AE COPD, CHF and pericardial effusion 11/28/22 until 12/08/22
h/o moderate to large pericardial effusion loculated and lateral and unable to to be approached for pericardiocentesis 12/04/23
CKD 3b
Chronic HFpEF
Echo 11/29/22: EF 60-65%, no regional WMA, no evidence of RA/RV collapse, trace MR, moderate to large pericardial effusion mostly prominent and off axis apical views without obvious evidence of pericardial tamponade, subcostal views are suboptimal
and thus IVC could not be well visualized however patient is on a ventilator, technically difficult study
Echo 01/19/23: EF 55-60%, small to moderate pericardial effusion without evidence of hemodynamic compromise
Echo 01/21/24: Report pending
Plan:
-Patient [facility] Saturday with increased SOB and was found to have a new large left hilar mass concerning for malignancy and was admitted for evaluation, but cardiology is now consulted for new Afib last night. Patient was admitted to
11/28/2022 until 12/08/2022 for acute exacerbation of COPD resulting in VDRF. During that admission cardiology was consulted for evidence of pericardial effusion on echo. It was a moderate to large pericardial effusion that was mostly prominent and
off axis apical views without obvious evidence of tamponade, the subcostal views were suboptimal. Given the location of the pericardial effusion was not felt to be approachable for pericardiocentesis. The pericardial effusion was managed with
addition of colchicine. Patient then followed up with pulmonology as an outpatient December 2022 and was recommended an outpatient CT chest for lung cancer screening. Patient has also followed up with Dr. Deng in the office as an outpatient and was
recommended a repeat echo which she completed 01/19/2023 and it showed that the pericardial effusion had improved and was now small to moderate and again no evidence of hemodynamic compromise. Patient's daughter reports that patient had sudden
shortness of breath on Saturday and was brought to ER. Patient was seen by her PCP on 01/10/2024 for symptoms of chest heaviness and congestion and this was thought to be due to recent missed doses of some of her inhalers. Unfortunately the
patient lost her job recently and after a few months of Cobra she transition to a new healthcare insurance which it turns out did not cover some of her inhalers. She was given samples of her inhalers at her PCP office, but reportedly did not have
any improvement and then was abruptly short of breath on Saturday prompting ER evaluation. In the ER there was evidence of a large left hilar lung mass with local invasion causing complete atelectasis of the left lung and encasement/partial
obstruction of the left pulmonary arteries in the left main bronchus as well as the left upper lobe and left lower lobe bronchi. Patient is undergoing evaluation for this and had a large left pleural effusion drained for 2 L today. Cardiology is
consulted for evidence of rapid A-fib overnight last night. The patient felt palpitations and nursing noted rapid A-fib on telemetry. The patient was placed on a Cardizem drip and then spontaneously converted to sinus rhythm. Patient remains in
sinus rhythm now.
-Check cho
-Follow on tele. ECG reviewed by me showed Afib without ischemic changes.
-Reviewed with patient and daughter that risk factors for Afib include COPD, former smoker, HTN and obesity plus the concerning new left lung mass that is being worked-up for malignant process. Will follow for recurrence of Afib on tele.
-Cardizem gtt stopped. Cont outpatient dose of Coreg 12.5 mg BID. If Afib recurs then could consider starting AAD.
-New to Eliquis 5 mg BID (age 63, Cre 1.3, wt 102 kg). Eliquis can be held if lung mass biopsy needed. Patient does not had an Rx plan currently, will work on patient prescription assistance.
-Await echo to re-evaluate pericardial effusion that had improved by last echo 01/2023
-Patient was diuresed during her last admission 11/2022 and has remained on Lasix 40 mg PO daily since then for HFpEF. No evidence of acute HF.
-Presented with acute COPD exacerbation and heart failure with moderate to large pericardial effusion noted on echo.
[2024-01-21] MEDS: DESENEX/MITRAZOL/ZEASORB 1 APPLIC TOPICAL (13:18)
[2024-01-21] MEDS: ZYRTEC 10 MG PO (15:55)
--- NOTE | 2024-01-21 16:00 | PTCARENOTE ---
Patient remains o 3-4 L O2 via n/c sp02 92-96% left base diminished, sob on exertion. SR on monitor HR 70's. Patient currently out of bed to chair. Ambulated to BR with assistance x1. Patient denies any pain or discomfort. Call duarte in reach.
[2024-01-21] MEDS: DESENEX/MITRAZOL/ZEASORB TOPICAL (20:47)
--- NOTE | 2024-01-21 21:25 | PTCARENOTE ---
Received pt at change of shift. Pt in good spirits sitting in bed. Ambulatory in room with 1 assist; steady on feet. Lungs are diminished on the right side; absent on the left; LÓPEZ and moist non productive occasional cough. Pt offers no
complaints at this time. Resting in bed with call duarte in reach.
[2024-01-22] VITALS (14 sets, daily range): BP systolic 76–119; BP diastolic 31–67; BMI 42.6
[2024-01-22] MEDS: SYNTHROID 75 MCG PO (06:18)
[2024-01-22] MEDS: STRIVERDI RESPIMAT 2 PUFF INH (07:35)
[2024-01-22] MEDS: SPIRIVA RESPIMAT 2.5 MCG 2 PUFF INH (07:35)
--- NOTE | 2024-01-22 07:46 | W.PN.HOSP.TC ---
Addendum entered and electronically signed by Rachel Johnson MD 01/22/24 14:36:
Patient is in need of oxygen at 1 liters/minute via nasal cannula continuously due to pulse oximetry of 86% on room air at rest. Oxygen will help to improve hypoxemia. Patient is mobile within the home. DuoNeb therapy has been tried and is
ineffective in treating hypoxemia related symptoms. Oxygen is needed to improve symptoms.
Original Note:
Today's Communication/Plan
-
Thoracentesis this AM
Home O2 Testing
Expect DC this afternoon on home O2
Assessment / Plan
Assessment / Plan
Gen: NAD, AAOx3.
Eyes: EOMI, PERRLA, no scleral icterus.
Neck: supple.
CV: tachy, irreg/irreg, +S1/S2, no m/r/g.
Resp: Decreased breath sounds in the left base, faint rales in the right base
Abd: +BS, soft, NT, ND
Skin: No rashes.
Neuro: CN 2-12 intact, non-focal.
Psych: Normal mood and affect.
CXR 01/19/24: Near complete opacification of the left hemithorax with slight shift of mediastinal structures to the right. I favor that this is secondary to large left pleural effusion with underlying compressive atelectasis
Bronchial obstruction with postobstructive atelectasis is included in the differential diagnosis. CT chest with intravenous contrast material would be useful for further evaluation.
CTA chest 01/19/24:
-13 cm heterogeneous mass at the left hilum extending into the medial aspect of the left upper lung which is high-level suspicion for pulmonary malignancy. The mass is associated with:
-Complete atelectasis of the left lung
-Large left pleural effusion
-Several pleural-based probably malignant soft tissue implants in the lower left lung posteriorly
-Mediastinal lymphadenopathy
-Encasement and partial obstruction of the left main pulmonary artery, left upper lobe pulmonary artery and left lower lobe pulmonary artery
-Encasement and partial obstruction of the left main bronchus as well as left upper lobe and left lower lobe bronchi
-Mild shift of mediastinal structures to the right
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
TTE 01/21/24
CONCLUSIONS
1. Normal left ventricular size and function, ejection fraction 75%
2. Thickened mitral leaflets with trace mitral regurgitation and normal size
left atrium
3. Aortic sclerosis without stenosis or regurgitation
4. Normal right heart with normal pulmonary artery pressure
5. Small pericardial effusion
Atrial fibrillation with rapid response:
-patient with new diagnosis of afib on 01/19
-HR 110's, started on cardizem gtt, converted to sinus overnight
-CHADS2-Vasc score = 3 (female, HTN, heart failure). Eliquis initiated evening of 01/19
-TTE results above
-TSH 3.19
-cont [employer] Coreg
-appreciate cardiology consult
-Eliquis 5 BID
Acute hypoxemic respiratory insufficiency due to likely Metastatic Lung CA:
-imaging above (large L hilar Lung mass with local invasion, mediastinal LAD)
-s/p 01/20/24 L thoracentesis, awaiting cytology
-repeat CXR 01/20 with reaccumulation of fluid; for repeat thora today
-may need biopsy if cytology unrevealing
-Patient has follow up with Pulm on 01/22. will need outpatient PET
-home O2 testing prior to DC
Other problems:
Essential HTN: cont Norvasc/Coreg
Hypothyroidism: cont Levoxyl
COPD: not in acute exac, cont Spiriva/Striverdi
Gout: cont colchicine
h/o Pericardial effusion: cont colchicine
Morbid obesity due to excess calories
FULL/Eliquis
51 minutes spent on patient evaluation, medical decision making, coordination of care
Anticipated Discharge: Within 24 hours
Subjective/Interval History
-
Date of Service: January 22, 2024
Objective Data
-
Vital Signs:
Vital Signs
Temp Pulse Resp BP Pulse Ox
98.2 F 78 16 104/56 94
01/22/24 03:40 01/22/24 07:37 01/22/24 07:37 01/22/24 06:19 01/22/24 07:37
I&O
01/21/24 01/22/24 01/23/24
06:59 06:59 06:59
Intake Total 480 / 480 720 / 720
Balance 480 / 480 720 / 720
--- NOTE | 2024-01-22 08:05 | PTCARENOTE ---
Pt alert and oriented x 3. Ambulates to bathroom, standby assist. Oxygen at 3L NC, pt dyspneic with this activity. Pulse ox at 95%. Onto stretcher for transport to [facility]> Dr. Johnson met at bedside discussing plan of care with pt.
[2024-01-22] MEDS: NORVASC 10 MG PO (09:03)
[2024-01-22] MEDS: ELIQUIS 5 MG PO (09:03)
[2024-01-22] MEDS: ZYRTEC 10 MG PO (09:03)
[2024-01-22] MEDS: DESENEX/MITRAZOL/ZEASORB 1 APPLIC TOPICAL (09:05)
[2024-01-22] MEDS: COREG 12.5 MG PO (09:06)
[2024-01-22] MEDS: LASIX 40 MG PO (09:06)
--- NOTE | 2024-01-22 09:27 | W.PN.PUL.V3 ---
Today's Communication / Plan
-
Assess discharge supplemental oxygen needs
Repeat thoracentesis if there is enough fluid for tap
Cytology pending
Outpatient pulmonary follow-up
Assessment
-
63-year-old female patient who quit smoking 1 year ago and carries a diagnosis of COPD followed by Dr. Portillo as well as hypertension and CHF presented with progressive shortness of breath over the last 2 weeks noted to have large left pleural
effusion and pulmonary consulted for shortness of breath/pleural effusion 01/20/2024.
Assessment
Severe shortness of breath related to large left pleural effusion and underlying COPD
Left pleural effusion
Thoracentesis 01/20/24--2 L-cultures and cytology pending
Mild hyperglycemia
Conditions present prior to admission:
Hospitalization 11/2022-hypoxemic hypercapnic respiratory failure, shock, MONICA moderate to large pericardial effusion and COPD exacerbation
COPD.
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
CHF preserved EF.
Morbid obesity-no FAYE on PSG 01/2023-significant nocturnal hypoxemia
Postnasal drip.
Allergies.
Hypertension.
Chronic kidney disease.
Hypothyroid.
Pericardial effusion 11/2022
Plan
The patient's pulmonary decompensation related to large left pleural effusion and atelectasis as well as a lung mass in a patient with underlying COPD
Radiographs, office records and recommendations, and echocardiograms are summarized below
Continue supplemental oxygen as needed-attempt to wean to room air
Assess discharge supplemental oxygen needs prior to discharge
Incentive spirometry
Nebulizers
Patient is on outpatient Trelegy-resume at time of discharge
Mucolytic's if needed
Mucus clearing devices if needed
Aspiration precautions
Thoracentesis recommended-performed 01/20/24--2 L-cultures negative, cytology pending
Repeat thoracentesis planned for 01/22/2024 prior to discharge
If pleural fluid evaluation is unrevealing for malignancy then biopsy will be required
Eventual outpatient PET scan
Dr. Smith reviewed with daughter 01/20/2024 and patient about high potential for underlying malignancy and need for definitive diagnosis
Dr. Smith also warned patient and daughter of potential for rapid reaccumulation of pleural fluid, need for repeat thoracentesis and possible Pleurx catheter placement
Suspect will need oncological evaluation
Follow radiographically as an outpatient
Reviewed potential Pleurx catheter if recurrent rapid pleural fluid accumulation
Paroxysmal atrial fibrillation noted
Atrial fibrillation rate control-now has converted back to sinus rhythm
Echocardiogram pending
Cardiology following-correspondence reviewed
Eliquis for cardioembolic prophylaxis recommended
DVT prophylaxis-initially on Lovenox-now changed to Eliquis
Nutrition
Increase activity
Reviewed with nursing as well as Dr. Johnson
Stable from a pulmonary perspective for proposed discharge and follow-up with pulmonary tomorrow
She was given a CT low-dose lung cancer screening prescription 12/28/2022 by the pulmonary office-never obtained scan, was encouraged to obtain CT at 02/13/2023 appointment
She was last seen by Dr. Portillo 02/13/2023 and has an appointment to see Mary Ann Garza NP 01/23/2024 at 3:45 PM-will need to delay this appointment unless she is out of the hospital in the next 24 hours
Diagnostic data:
Chest x-ray 11/30/2022-moderate cardiomegaly with suspected mild interstitial cardiogenic pulm edema, large amount of opacification left lower lobe probable compressive atelectasis adjacent to small to moderate left pleural effusion
Chest x-ray 01/19/2024-near complete opacification left hemithorax with shift of mediastinal structures to the right favoring large pleural effusion with underlying compressive atelectasis
Chest x-ray 01/20/2024-improved aeration left lung, loculated pleural effusion
CT chest 01/19/24-13 cm heterogeneous mass left hilum extending into the medial aspects of the left upper lobe with high level suspicion for pulmonary malignancy and masses associated with complete atelectasis of the left lung, large left pleural
effusion and several pleural-based probable malignant soft tissue implants along with mediastinal lymphadenopathy and encasement and partial obstruction left main pulmonary artery, left upper lobe pulmonary artery and left lower lobe pulmonary
artery and probable 3 cm adrenal metastases and probable 3 cm area of malignant adenopathy
Echo 12/03/22: Limited echo. Normal LV size and function. EF 60-65%. Mild concentric LVH. Moderate to large pericardial effusion without evidence of hemodynamic compromise.
Echocardiogram 01/19/2023-EF 55-60%, small to moderate pericardial effusion
PFTs 02/13/23: FEV1 1.84L 78%, FVC 2.59L 85%, ratio 71.� Post FEV1 1.8L 76%.� No significant bronchodilator response.� TLC 4.66L 101%, DLCO 47% (spirometry mildly reduced suggesting restriction, TLC normal, there is a moderate diffusion impairment)
PSG 01/29/23: AHI 1.0, O2 negar 78%, mild snoring. TST 360 mins, SE 76.8%
Subjective Data
-
Date of Service:
Date of Service: January 22, 2024
Chief Complaint: Pulmonary Follow Up and Dyspnea Follow Up
Subjective:
Some shortness of breath with exertion, fluid reaccumulation, no chest pain, chest tightness, wheezing, or abdominal pain
Review of Systems
General: Other (Per HPI)
Objective Data
Data Reviewed
Vital Signs / I&O:
Vital Signs
Temp Pulse Resp BP Pulse Ox
98 F 78 18 111/62 94
01/22/24 08:10 01/22/24 09:06 01/22/24 08:42 01/22/24 09:06 01/22/24 08:10
Intake and Output
01/21/24 01/22/24 01/23/24
06:59 06:59 06:59
Intake Total 480 / 480 720 / 720
Balance 480 / 480 720 / 720
SaO2: 94
Nasal Cannula flow liters per minute: 3
Physical Exam
General: Respiratory Distress (n) and Comfortable
HEENT: Normocephalic, Anicteric and Moist Mucous Membranes
Cardiovascular: Regular Rhythm
Respiratory: Clear (Decreased breath sounds and prolonged expiratory time f), Wheeze (Few forced expiratory), Crackles (Rare basilar), Rhonchi (n), Non-Labored Respirations, Accessory Resp Muscle Use (n) and Stridor
GI: Soft, Non Distended and Non Tender
Neurology: Awake, Alert and No Motor Deficits
Skin: Warm, Good Color, Cyanosis (n), Jaundice (n) and Rash (n)
Labs/Micro/Reports
Lab Data
01/20/24 04:53
01/20/24 04:53
Microbiology
01/20/24 08:44 Pleural Fluid Body Fluid Culture - Preliminary
No Growth After 18-24 Hours
01/20/24 08:44 Pleural Fluid Gram Stain - Final
--- NOTE | 2024-01-22 11:12 | W.PN.CARDCBS ---
Today's Communication / Plan
-
Continue Eliquis on discharge, okay to hold for lung biopsy if needed
Stable cardiac status, we will arrange outpatient follow-up
Impression / Plan
-
PCP: Dr. Ysabel Pereira
Cardiology: Dr. Deng
Pulm: Dr. Dodie Portillo
Impression:�
Acute hypoxemic respiratory failure
New large left hilar lung mass with local invasion causing complete atelectasis of left lung and encasement/partial obstruction of the left pulmonary arteries and left main bronchus as well as OFELIA and LLL bronchi 01/20/24
Large left pleural effusion
s/p left thoracentesis with 2 L removed 01/21/24
Newly diagnosed Afib with RVR 01/20/24
spontaneously converted to SR 01/20/24
New start to chronic Eliquis OAC 01/20/24
COPD
Former smoker
Previous admission for VDRF, AE COPD, CHF and pericardial effusion 11/28/22 until 12/08/22
h/o moderate to large pericardial effusion loculated and lateral and unable to to be approached for pericardiocentesis 12/04/23
CKD 3b
Chronic HFpEF
Echo 11/29/22: EF 60-65%, no regional WMA, no evidence of RA/RV collapse, trace MR, moderate to large pericardial effusion mostly prominent and off axis apical views without obvious evidence of pericardial tamponade, subcostal views are suboptimal
and thus IVC could not be well visualized however patient is on a ventilator, technically difficult study
Echo 01/19/23: EF 55-60%, small to moderate pericardial effusion without evidence of hemodynamic compromise
Patient came to [facility] Saturday with increased SOB and was found to have a new large left hilar mass concerning for malignancy and was admitted for evaluation, but cardiology is now consulted for new Afib last night. Patient was admitted to
11/28/2022 until 12/08/2022 for acute exacerbation of COPD resulting in VDRF. During that admission cardiology was consulted for evidence of pericardial effusion on echo. It was a moderate to large pericardial effusion that was mostly prominent and
off axis apical views without obvious evidence of tamponade, the subcostal views were suboptimal. Given the location of the pericardial effusion was not felt to be approachable for pericardiocentesis. The pericardial effusion was managed with
addition of colchicine. Patient then followed up with pulmonology as an outpatient December 2022 and was recommended an outpatient CT chest for lung cancer screening. Patient has also followed up with Dr. Deng in the office as an outpatient and was
recommended a repeat echo which she completed 01/19/2023 and it showed that the pericardial effusion had improved and was now small to moderate and again no evidence of hemodynamic compromise. Patient's daughter reports that patient had sudden
shortness of breath on Saturday and was brought to ER. Patient was seen by her PCP on 01/10/2024 for symptoms of chest heaviness and congestion and this was thought to be due to recent missed doses of some of her inhalers. Unfortunately the
patient lost her job recently and after a few months of [employer] she transition to a new healthcare insurance which it turns out did not cover some of her inhalers. She was given samples of her inhalers at her PCP office, but reportedly did not have
any improvement and then was abruptly short of breath on Saturday prompting ER evaluation. In the ER there was evidence of a large left hilar lung mass with local invasion causing complete atelectasis of the left lung and encasement/partial
obstruction of the left pulmonary arteries in the left main bronchus as well as the left upper lobe and left lower lobe bronchi. Patient is undergoing evaluation for this and had a large left pleural effusion drained for 2 L today. Cardiology is
consulted for evidence of rapid A-fib overnight last night. The patient felt palpitations and nursing noted rapid A-fib on telemetry. The patient was placed on a Cardizem drip and then spontaneously converted to sinus rhythm. Patient remains in
sinus rhythm now.
Plan:
-No recurrence of A-fib on telemetry
-Echo with preserved LV function, small pericardial effusion improved from prior and no high grade valvular pathology
-Cont outpatient dose of Coreg 12.5 mg BID. If Afib recurs then could consider starting AAD.
-New to Eliquis 5 mg BID (age 63, Cre 1.3, wt 102 kg). Eliquis can be held if lung mass biopsy needed. Patient does not had an Rx plan currently, will work on patient prescription assistance.
-Patient was diuresed during her last admission 11/2022 and has remained on Lasix 40 mg PO daily since then for HFpEF. No evidence of acute HF. Would continue home p.o. Lasix dosing.
Progress Note - Hydramatic Mechanic
Subjective
Date of Service: January 22, 2024
No acute overnight events. Underwent thoracentesis earlier today and tells me that she has had some improvement in her breathing. No recurrence of atrial fibrillation.
Objective
Labs:
01/20/24 04:53
01/20/24 04:53
Labs
Hgb 12.0 g/dL (12.0-16.0) 01/20/24 04:53
Hct 37.6 % (37.0-47.0) 01/20/24 04:53
Plt Count 312 10^3/uL (130-400) 01/20/24 04:53
Sodium 140 mmol/L (135-145) 01/20/24 04:53
Potassium 3.5 mmol/L (3.5-5.1) 01/20/24 04:53
BUN 27 mg/dl (7-17) H 01/20/24 04:53
Creatinine 1.3 mg/dL (0.6-1.0) H 01/20/24 04:53
Glucose 102 mg/dl (70-99) H 01/20/24 04:53
Vital Signs and I&O:
Vital Signs
Temp Pulse Resp BP Pulse Ox
98 F 78 18 111/62 94
01/22/24 08:10 01/22/24 09:06 01/22/24 08:42 01/22/24 09:06 01/22/24 09:27
Vital Signs
Temp Pulse Resp BP Pulse Ox
98 F 78 18 111/62 94
01/22/24 08:10 01/22/24 09:06 01/22/24 08:42 01/22/24 09:06 01/22/24 09:27
Intake & Output
01/20/24 01/21/24 01/22/24 01/23/24
06:59 06:59 06:59 06:59
Intake Total 480 / 480 480 / 480 720 / 720 240 / 240
Output Total 400 / 400
Balance 80 / 80 480 / 480 720 / 720 240 / 240
Physical Exam
Physical Exam
Gen: NAD, AAOx3
HEENT: NC/AT, sclera anicteric
Neck: No JVD
CV: RRR, NL s1/s2
Lungs: No increased work of breathing on 1 L nasal cannula
Abd: S/ND
Ext: No LE edema
Skin: Warm, dry
Neuro: Non-focal
--- NOTE | 2024-01-22 14:36 | W.DS.TRANS ---
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
-
Discharge Instructions:
Sleep Apnea Risk High
Discharge Diagnosis/Procedures pleural effusion, atrial fibrillation
Diet Regular
Activity As tolerated
Driving Restrictions As prior to admission
Bathing Restrictions None
Other Services VN
Instructions: Apixaban
Stand-Alone Forms:
Changes to Home Medications: Yes
Discharge Medications:
DC Medications w/original date entered in [employer]
levothyroxine 75 mcg tablet 75 mcg PO DAILY@0700 #30 tabs 12/08/22
Anoro Ellipta 62.5 mcg inhalation Lung/Breathing Issues 01/20/24
amlodipine 10 mg tablet 10 mg PO Daily Blood Pressure 01/20/24
carvedilol 12.5 mg PO BID Blood Pressure 01/20/24
furosemide 40 mg PO Daily Fluid Retention/Swelling 01/20/24
apixaban 5 mg tablet (Eliquis) 5 mg PO BID #60 tabs 01/22/24
cetirizine 10 mg tablet 10 mg PO DAILY #0 tabs 01/22/24
miconazole nitrate 2 % topical powder (Miconazorb AF) 1 applic topical BID #0 grams 01/22/24
Home Medication Changes
new start Eliquis
Pending Results: Yes
Additional Pending Results:
Cytology
--- NOTE | 2024-01-22 14:41 | CM ---
Patient with Dx pulmonary mass, pleural effusion, Afib, Acute hypoxemic respiratory insufficiency. O2 3L. Home O2 Assessment completed.
Spoke with patient who was preparing for d/c. Offered VN for home nurse assessment and she agrees - patient chooses [facility]. The patient agrees to home O2 and is aware that the [facility] Liaison Abby is setting it up for her.
Patient says she is anxious to hear the results regarding her pleural fluid testing. Offered needle setter for spiritual support and patient agrees ---> request to [facility].
Patient says her daughter will provide transport home today.
Referral to ASHLEY Mora. Abby has set up home O2 through [facility].
Plan home today with Home O2 through [facility], with [facility].
--- NOTE | 2024-01-22 14:50 | VNURNOTE ---
Home Health Liaison spoke with patient at 1415 to discuss [facility] nurse/therapy, visits, schedule and homebound status. Patient is agreeable and understands that visits at home will be 2-3 x per week to assess and teach medical management.
[facility] contact information provided by text to patient. Patient is aware that [facility] will contact her for start of care in 1-2 days after discharge from .
[facility] referral completed in [facility].
Home O2 ordered with [facility], all information faxed at [phone].
Confirmation with Aly from [facility] that portable tank will be delivered to patient room today and concentrator to home once patient is home and calls to arrange.
--- NOTE | 2024-01-22 15:16 | W.DCSUMMARY ---
Discharge Summary
Discharge Data
Date of Admission: 01/19/24
Date of Discharge: 01/22/24
-
Pending Results: No
Hospital Course
Discharging Physician : Dr. Rachel Johnson
Disposition : Home with Home Health
Primary care physician : Dr. Ysabel Pereira
Principal Discharge diagnosis : concern for malignant pleural effusion, atrial fibrillation
Hospital Course :
Ms. Sonali Garcia is a 63 yo woman with hx former smoker, COPD, essential hypertension presents to the ER with shortness of breath over past couple of weeks. CXR with finding of large left pleural effusion. CT with 13cm heterogeneous mass with high
levels suspicion for pulmonary malignancy; several pleural-based probably malignancy soft tissue implants and mediastinal lymphadenopathy. She was admitted to medicine with pulmonary and IR consulting, s/p thoracentesis on 01/19. Fluid pH 7.46, WBC
1044 with 8.9% PMN, culture negative and pathology pending at this time. CXR repeated afternoon of 01/20 and patient had reaccumulation of fluid s/p repeat thoracentesis with cytology sent.
Home O2 testing done pre-discharge and she is discharged with home O2. Pleur-X catheter may need to be considered as outpatient. She has follow up with Pulmonary Clinic tomorrow on 01/22.
Hospital course complicated by atrial fibrillation with RVR. She was placed on a Diltiazem gtt and converted to sinus rhythm overnight. She is maintained on her [employer] Coreg. Newly started on Eliquis for stroke prevention. She will follow up
closely with cardiology.
Time spent on discharge was 32 minutes.
Important imaging findings :
CXR 01/19/24
There is near complete opacification of the left hemithorax with slight shift of mediastinal structures to the right.
I favor that this is secondary to large left pleural effusion with underlying compressive atelectasis
Bronchial obstruction with postobstructive atelectasis is included in the differential diagnosis
CT chest with intravenous contrast material would be useful for further evaluation.
CT Chest Pe Study 01/19/24
There is a 13 cm heterogeneous mass at the left hilum extending into the medial aspect of the left upper lung which is high-level suspicion for pulmonary malignancy. The mass is associated with:
-Complete atelectasis of the left lung
-Large left pleural effusion
-Several pleural-based probably malignant soft tissue implants in the lower left lung posteriorly
-Mediastinal lymphadenopathy
-Encasement and partial obstruction of the left main pulmonary artery, left upper lobe pulmonary artery and left lower lobe pulmonary artery
-Encasement and partial obstruction of the left main bronchus as well as left upper lobe and left lower lobe bronchi
-Mild shift of mediastinal structures to the right
Left thoracentesis, biopsy and/or PET scan could be considered for further evaluation
2). 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
TTE 01/21/24
CONCLUSIONS
1. Normal left ventricular size and function, ejection fraction 75%
2. Thickened mitral leaflets with trace mitral regurgitation and normal size
left atrium
3. Aortic sclerosis without stenosis or regurgitation
4. Normal right heart with normal pulmonary artery pressure
5. Small pericardial effusion
In January 2023 the ejection fraction was 55 to 60% and the pericardial effusion
was small to moderate.
Indications:
AFIB
Procedure findings :
Discharge Plan
-
Patient Disposition: Home with Home Care
Discharge Diagnosis/Procedures: pleural effusion, atrial fibrillation
Diet: Regular
Activity: As tolerated
Driving Restrictions: As prior to admission
Bathing Restrictions: None
Other Services: VN
Activity Restrictions/Additional Instructions:
Follow up at Pulmonary Clinic at scheduled appointment tomorrow.
Seek medical attention for any worsening shortness of breath, fever, chest pain.
You are started on Eliquis for stroke prevention with atrial fibrillation.
Instructions: Apixaban
Referrals:
Breanna Sanchez PA-C [Specified Professional Personl] - 02/11/24 3:00 pm (You have a follow up visit with Dr. Deng's PA, Breanna Sanchez, at the [facility] office. Please call with questions. )
Ysabel Pereira DO [Family Provider] - in less than 1 week
Mary Ann Garza CRNP [Specified Professional Personl] - 01/23/24 3:45 pm
Prescriptions:
New
miconazole nitrate [Miconazorb AF] 2 % Powder
1 applic topical BID Qty: 0 0RF
Eliquis 5 mg Tablet
5 mg PO BID Qty: 60 0RF
cetirizine 10 mg Tablet
10 mg PO DAILY Qty: 0 0RF
Continued
levothyroxine 75 mcg Tablet
75 mcg PO DAILY@0700 Qty: 30 0RF
carvedilol
12.5 mg PO BID
furosemide
40 mg PO Daily
amlodipine 10 mg tablet
10 mg PO Daily
Anoro Ellipta inhaler
62.5 mcg inhalation
Discharge Orders:
Discharge Patient (As Directed); Ordered 01/22/24
Ordered By: Rachel Johnson
Discharge Date and Time
Print Language: JORDANIAN
--- NOTE | 2024-01-22 15:51 | PTCARENOTE ---
Patient returned from [facility] this am , bandaid CDI to left posterior back. Pt denies pain. She reports feeling less SOB upon return. Resp therapy home O2 eval reveals her need for home oxugen, discharge planning in progress, awaiting Oxygen tank
delivery and then pt's daughter will assist with transport home
--- NOTE | 2024-01-22 17:58 | PTCARENOTE ---
Patient discharged with new need for oxygen, pt is SOB with oxygen, tachypneic but much less since the thoracentesis this morning. She has an occasional HISTOTECHNOLOGIST moist cough. Pt instructed on oxygen usage and tank delivered to bedside for transport home.
Pt and daughter verbalized understanding of use. Home O2 being delivered. Pt lives with daughter and [place]. Pt also new on Eliquis -reviewed importance of this med in light of recent A-fib. Pt reviewed and verbalized understanding of s/s side effects
of Eliquis. Pt also verbalizing understanding of reasons for notifying MD or call 911. transferred to [facility] with daughter driving
== END 2024-01-22 18:19 | disposition home health service (06) | DRG 181 ==
LOC: IMU 21:16
PROVIDERS: Radiology Vascular & Interventional Radiology; ADMITTING PHYSICIAN Internal Medicine; ATTENDING PHYSICIAN Student in an Organized Health Care Education/Training Program; EMERGENCY PHYSICIAN Emergency Medicine; FAMILY PHYSICIAN Internal Medicine; OTHER PHYSICIAN Internal Medicine Cardiovascular Disease; OTHER PHYSICIAN Internal Medicine Critical Care Medicine
PROC: 0W9B3ZZ Drainage of Left Pleural Cavity, Percutaneous Approach (ICD-10-PCS; 2024-01-20)
DX: C34.92 Malignant neoplasm of unspecified part of left bronchus or lung (principal); C79.72 Secondary malignant neoplasm of left adrenal gland; J91.0 Malignant pleural effusion; I13.0 Hypertensive heart and chronic kidney disease with heart failure and stage 1 through stage 4 chronic kidney disease, or unspecified chronic kidney disease; I50.32 Chronic diastolic (congestive) heart failure; J98.11 Atelectasis; I31.39 Other pericardial effusion (noninflammatory); Z68.41 Body mass index [BMI] 40.0-44.9, adult; I48.91 Unspecified atrial fibrillation; R09.02 Hypoxemia; J44.9 Chronic obstructive pulmonary disease, unspecified; N18.32 Chronic kidney disease, stage 3b; E03.9 Hypothyroidism, unspecified; M10.9 Gout, unspecified; R73.9 Hyperglycemia, unspecified; E66.01 Morbid (severe) obesity due to excess calories; Z82.49 Family history of ischemic heart disease and other diseases of the circulatory system; Z87.891 Personal history of nicotine dependence
CPT/HCPCS: 88305; 32555; 71045; 71046; 71275; 80053; 82150; 82945; 82962; 83615; 83986; 84157; 84443; 84478; 85025; 85027; 87015; 87070; 87205; 88112; 88341; 88342; 89051; 93005; 93306; 94640; 99285; Q9950; Q9967

== ENCOUNTER → 2024-01-27 16:44 | Outpatient (REF) | payer OTHER, SELFPAY | LOC: HWRAD 16:44 | PROVIDERS: ATTENDING PHYSICIAN Nurse Practitioner Adult Health; FAMILY PHYSICIAN Internal Medicine | DX: J90 Pleural effusion, not elsewhere classified (principal) | CPT/HCPCS: 71046 ==

== ENCOUNTER → 2024-01-31 09:29 | Outpatient (REF) | payer OTHER, SELFPAY ==
[2024-01-31 09:45] VITALS: BP 104/65; BP_SYST 81
[2024-01-31 10:55] LABS: Body Fluid pH 7.46
[2024-01-31 11:03] VITALS: BP 97/56; BP_SYST 77
[2024-01-31 11:04] LABS: Body Fluid Mononuclear 92.9 %; Body Fluid Polymorphonuclear 7.1 %; Body Fluid WBC 1112 /CUMM
[2024-01-31 11:07] LABS: Body Fluid Glucose 118 mg/dl; Body Fluid LDH 234 U/L; Body Fluid Protein 4.4 g/dl
[2024-01-31 11:22] LABS: Body Fluid Second Tech EM
== END ==
LOC: RADI 09:29
PROVIDERS: ATTENDING PHYSICIAN Nurse Practitioner Adult Health; FAMILY PHYSICIAN Internal Medicine
DX: C80.1 Malignant (primary) neoplasm, unspecified (principal); J91.0 Malignant pleural effusion
CPT/HCPCS: 88305; 32555; 71045; 82945; 83615; 83986; 84157; 87015; 87070; 87102; 87116; 87205; 87206; 88112; 89051

== ENCOUNTER 2024-02-09 10:50 | Emergency (ER) | payer OTHER, SELFPAY ==
[2024-02-09 11:01] VITALS: BP 97/59
--- NOTE | 2024-02-09 11:17 | ED.GENMED ---
History of Present Illness
General
Chief Complaint: Breathing Problem
Source: patient
Exam Limitations: none
Time Seen by Provider: 02/09/24 11:11
History of Present Illness
History of Present Illness:
See MDM
Past History
Past History
ED Past Medical History: Cancer (Lung)
ED Past Surgical History: None
Social History
Tobacco: Smoker
Alcohol: None
Personal: Single
Living: with family
Employment: Employed
Phy Exam
Physical Exam
Physical Exam:
See MDM
Scores
Heart Failure Risk
Heart Failure Risk Score: Not Applicable
Course
Orders/Labs/Results
Orders:
Orders
02/09/24 11:15
Electrocardiogram (*1) Urgent
Reason for Study: Shortness of Breath
EKG- Treatment ONCE
CR Chest - 2 Views Urgent
Comment:
Reason For Exam: SOB, lung ca, hx left pleural effusion
02/09/24 12:44
Consult Interventional Radiology [[facility] CONSULT] Urgent
Consulting Provider: Henry Moreira
Was physician already notified: Yes
Reason for Consult/Procedure: Thoracentesis
Acknowledgement that appropriate orders are entered: Yes
02/09/24 14:38
CR Chest Portable - 1 View Urgent
Comment:
Reason For Exam: thoracentesis
Reason Study Needs to be Portable: Unable to Transport
Vital Signs
Initial and Last Documented VS:
Initial Vital Signs
Temp Pulse Resp BP Pulse Ox
98 F 81 22 97/59 96
02/09/24 11:01 02/09/24 11:01 02/09/24 11:01 02/09/24 11:01 02/09/24 11:01
Last Documented Vital Signs
Temp Pulse Resp BP Pulse Ox
98 F 81 24 97/59 96
02/09/24 11:01 02/09/24 12:21 02/09/24 12:21 02/09/24 11:01 02/09/24 12:11
MDM/Problems Addressed
Differential Diagnosis Includes:
HPI and MDM Narrative:
64-year-old female presenting with worsening shortness of breath. Patient is concerned she has another large left pleural effusion. She was recently diagnosed with lung cancer and is supposed to start chemotherapy tomorrow at [place]. She was
told by her doctors to get a thoracentesis either Saturday or Saturday but patient cannot tolerate the symptoms. Patient has not required increased oxygen requirement but she is clearly tachypneic. I hear no lung sounds on the left base. Will repeat
x-ray and discussed case with interventional radiology
Physical exam
General: Mildly uncomfortable and tachypneic
HEENT: protecting airway
Neck: appears supple
CV: No evidence of cyanosis
Resp: No accessory muscle use. No lung sounds auscultated to left base
Abd: Non-distended
Extremities: No deformities
Neuro: alert
Psych: Normal affect
Skin: Intact
Problems Addressed including Acute and Chronic Conditions affecting care:
1. Left pleural effusion
Acuity: acute
Prognosis: unstable
Details: Will obtain chest x-ray and discussed case with interventional radiology
Updates
Case discussed with interventional radiology and they are in-house and can perform thoracentesis later
Chest x-ray consistent with large left pleural effusion. IR aware
2:55 PM patient came back from IR. They removed a liter and she is feeling better
Differential Diagnosis (but not limited to): Pleural effusion, pneumonia
Testing considered: Blood work
Drug therapy (if applicable): OTC meds, please see d/c instruction regarding Rx drugs
Amount and/or Complexity of Data Reviewed
Clinical info obtained from: Patient
External data reviewed: Recent thoracentesis last week.
Labs I independently reviewed (but not limited to): N/A
Radiology: X-ray independently reviewed: Chest x-ray with large left pleural effusion
Pulse Ox: not hypoxic
EKG independently reviewed: Sinus rhythm, normal axis, no STEMI
[place] Counsel: N/A
Critical Care: N/A
Risk of Complication:
Social Determinants of health: Good social support
Discussed with other providers: Interventional radiology
Escalation of Care includes Admit/Obs: After being observed in the Emergency Department, pt stable for discharge.
Occasional wrong word or 'sound a like' substitutions may have occurred due to the inherent limitations of voice recognition software. Read the chart carefully and recognize, using context, where substitutions have occurred.
*Critical Care Note
Total Time (30-74mins, 75-104mins- exclusive of procedures): Not Applicable
ED Attending Note
-
Portions of this chart may have been created with voice recognition software.� Occasional wrong word or��sound alike� substitutions may have occurred due to the inherent limitations of voice recognition software.
Discharge Plan
Departure
Patient Disposition: Home (Routine Discharge)
Date of Disposition: 02/09/24
Time of Disposition: 14:57
Patient with high blood pressure during this ER visit?: No
Discharge Problem:
Pleural effusion
Prescriptions:
No Action
carvedilol
12.5 mg PO BID
furosemide
40 mg PO Daily
amlodipine 10 mg tablet
10 mg PO Daily
Anoro Ellipta inhaler
62.5 mcg inhalation 1XD
miconazole nitrate [Miconazorb AF] 2 % Powder
1 applic topical BID Qty: 0 0RF
Eliquis 5 mg Tablet
5 mg PO BID Qty: 60 0RF
cetirizine 10 mg Tablet
10 mg PO DAILY Qty: 0 0RF
levothyroxine 100 mcg Tablet
100 mcg PO DAILY
levothyroxine 200 mcg Tablet
200 mcg PO QWEEK
Rx Instructions:
Saturdays
Referrals:
UNKNOWN,NO INTERVIEW [Family Provider] -
Activity Restrictions/Additional Instructions:
Please keep your chemotherapy appointment tomorrow. You may return anytime if you develop recurrence of shortness of breath.
Interventions
Interventions:
*Risk Screen - Suicide Last Done: 02/09/24 11:01
*General Assessment Last Done: 02/09/24 11:01
*Neglect/Abuse Screening Last Done: 02/09/24 11:01
ED- Fall Risk Assessment Last Done: 02/09/24 12:11
*ED COVID-19 Vaccine History Last Done: 02/09/24 12:11
ED- Cardiac Assessment Last Done: 02/09/24 12:11
ED- Pulmonary Assessment Last Done: 02/09/24 12:11
Discharge Date and Time
Print Language: MONGOLIAN
[2024-02-09 12:11] VITALS: BMI 29.0
[2024-02-09 14:00] VITALS: BP 105/54; BP_SYST 78
[2024-02-09 14:50] VITALS: BP 95/51
[2024-02-09 15:00] VITALS: BP 125/71
== END 2024-02-09 15:00 | disposition home or self-care (01) ==
LOC: EMR 10:50
PROVIDERS: CONSULT PHYSICIAN Radiology Diagnostic Radiology; EMERGENCY PHYSICIAN Student in an Organized Health Care Education/Training Program
DX: J90 Pleural effusion, not elsewhere classified (principal); F17.200 Nicotine dependence, unspecified, uncomplicated; C34.92 Malignant neoplasm of unspecified part of left bronchus or lung
CPT/HCPCS: 99284; 32555; 71045; 71046; 93005

== ENCOUNTER → 2024-02-14 10:08 | Outpatient (REF) | payer OTHER, SELFPAY ==
[2024-02-14 10:20] VITALS: BP 94/52; BP_SYST 81
[2024-02-14 10:27] VITALS: BP 94/52; BP_SYST 81
== END ==
LOC: RADI 10:08
PROVIDERS: ATTENDING PHYSICIAN Nurse Practitioner Adult Health
DX: C34.12 Malignant neoplasm of upper lobe, left bronchus or lung (principal); J91.0 Malignant pleural effusion; C77.2 Secondary and unspecified malignant neoplasm of intra-abdominal lymph nodes; C79.72 Secondary malignant neoplasm of left adrenal gland; Z53.8 Procedure and treatment not carried out for other reasons; C78.2 Secondary malignant neoplasm of pleura; J98.11 Atelectasis; I31.39 Other pericardial effusion (noninflammatory)
CPT/HCPCS: 71250; 76604

== ENCOUNTER 2024-02-21 15:57 | Inpatient (IN) | payer OTHER, SELFPAY ==
[2024-02-21] VITALS (24 sets, daily range): BP systolic 91–115; BP diastolic 48–101; BMI 41.2; BMI 41.3
--- NOTE | 2024-02-21 08:45 | ED.GENMED ---
History of Present Illness
General
Chief Complaint: Breathing Problem
Source: patient
Time Seen by Provider: 02/21/24 08:33
History of Present Illness
History of Present Illness:
64yoF with a history of recently diagnosed lung cancer, chronic respiratory failure on 3L NC, COPD, CHF, and atrial fibrillation presenting via EMS for evaluation of shortness of breath. Patient reports waking up this morning around 5:30am with
acute dyspnea prompting EMS call. Patient was hypoxic to 79% on EMS arrival and she was placed on a NRB prehospital. Patient is now feeling improved. She reports left sided chest discomfort and she believes her symptoms are from fluid buildup.
She was diagnosed with lung cancer last month and is receiving her care at [facility]. She started chemotherapy last week. She has required 3 thoracentesis procedures over the past few weeks due to pleural effusions. She was scheduled for a procedure
this morning and she has been holding her Eliquis for the past 2 days in preparation for this. Patient denies any fevers, leg swelling, weight gain.
Past History
Past History
ED Past Medical History: Cancer (Lung)
ED Past Surgical History: None
Social History
Tobacco: Smoker
Alcohol: None
Personal: Single
Living: with family
Employment: Employed
Phy Exam
Physical Exam
Physical Exam:
Patient arrives on NRB with mild conversational dyspnea. Decreased breath sounds on the L with rhonchi throughout R lung.
General Physical Exam
General Presentation: moderate distress
General Skin: warm and dry
General Mental: alert
Cardiovascular Exam
Cardiovascular Exam: regular rate/rhythm, no edema and no murmur
Pulmonary Exam
Respirations: labored and mild increase in effort
Musculoskeletal Exam
Musculoskeletal Exam: no edema
Skin Exam
Skin Exam: normal color and warm/dry
Scores
Heart Failure Risk
Heart Failure Risk Score: Not Applicable
Course
Orders/Labs/Results
Orders:
Orders
02/21/24 08:31
EKG [Electrocardiogram (*1)] Urgent
Reason for Study: Shortness of Breath
02/21/24 08:32
EKG- Treatment ONCE
02/21/24 08:45
CR Chest Portable - 1 View Urgent
Comment:
Reason For Exam: SOB, hypoxia
Reason Study Needs to be Portable: Patient Unstable
02/21/24 08:55
Complete Blood Count/With Diff Urgent
Comprehensive Metabolic Panel Urgent
Troponin I Urgent
02/21/24 09:49
Cefepime HCl [Maxipime] 2,000 mg IV NOW STA
02/21/24 09:58
* Blood Bank Products Urgent
Blood Bank Products: *Packed RBC Leuko(PRBC's)
Quantity: 1
Transfuse Today: Yes
Reason: Anemia
Patient will require pre-treatment for transfusion:: No
02/21/24 10:44
Type+Screen Urgent
Blood Culture Urgent
NEMO Source: Blood/Venous
Specimen Description:
02/21/24 13:57
Consult Interventional Radiology [IRAD CONSULT] Routine
Consulting Provider: Reno Wilson
Was physician already notified: Yes
Reason for Consult/Procedure: Pleural effusion
Acknowledgement that appropriate orders are entered: Yes
02/21/24 13:59
ONCOLOGY CONSULT Routine
Consulting Provider: Nishant Salas
Was physician already notified: Yes
02/21/24 14:02
* Blood Bank Products Stat
Blood Bank Products: *Packed RBC Leuko(PRBC's)
Quantity: 1
Transfuse Today: Yes
Reason: Anemia
* Blood Bank Products Stat
Blood Bank Products: *Plt Single Donor Leuko
Quantity: 2
Transfuse Today: Yes
Reason: Thrombocytopenia
02/21/24 14:49
CT Chest Pe Study Urgent
Comment:
Reason For Exam: worsening hyopoxia
02/21/24 14:59
Change Attending Physician As Directed
Change attending physician to: Willie Whitten
Abnormal Lab Results
02/21/24 02/21/24
08:55 10:44
WBC 0.3 L* 10^3/uL
(4.8-10.8)
RBC 2.39 L 10^6/uL
(4.20-5.40)
Hgb 6.7 L* g/dL
(12.0-16.0)
Hct 20.4 L* %
(37.0-47.0)
MCHC 32.8 L g/dL
(33.0-37.0)
RDW 15.3 H %
(11.5-14.5)
Plt Count 19 L* 10^3/uL
(130-400)
Absolute Neuts (auto) 0.0 L* 10^3/uL
(1.4-6.5)
Absolute Lymphs (auto) 0.2 L 10^3/uL
(1.2-3.4)
Absolute Monos (auto) 0.0 L 10^3/uL
(0.1-0.6)
Neutrophils % 12.0 L %
(42.2-75.2)
Lymphocytes % 76.0 H %
(20.5-51.1)
Sodium 134 L mmol/L
(135-145)
Chloride 97 L mmol/L
(98-107)
Carbon Dioxide 31 H mmol/L
(22-30)
BUN 28 H mg/dl
(7-17)
Calcium 7.8 L mg/dl
(8.4-10.2)
Total Protein 5.0 L g/dl
(6.3-8.2)
Albumin 2.7 L g/dl
(3.5-5.0)
Crossmatch IS Only See Detail
02/21/24 08:55
02/21/24 08:55
Vital Signs
Initial and Last Documented VS:
Initial Vital Signs
BP
112/101
02/21/24 08:31
Last Documented Vital Signs
Temp Pulse Resp BP Pulse Ox
97.7 F 80 16 113/48 91
02/21/24 12:39 02/21/24 12:39 02/21/24 12:39 02/21/24 12:39 02/21/24 12:30
MDM/Problems Addressed
Differential Diagnosis Includes:
64yoF presenting for shortness of breath. History of recently diagnosed lung cancer on 3 L nasal cannula at baseline. Patient hypoxic to the 70s for EMS and arrives on nonrebreather. Patient is in mild to moderate respiratory distress. Decreased
breath sounds throughout left lung on exam. Differential diagnosis includes but is not limited to: Pleural effusion, pneumonia, pneumothorax, malignancy, ACS
Initial ED plan: Check cardiac labs, EKG, chest x-ray. Will discuss with Malcolm Mullen.
*EKG
EKG Intrepretation Date: 02/21/24
EKG Intrepretation Time: 08:57
Heart Rate: 84
Rate: normal
Rhythm: sinus
[place]: normal axis
Interval: normal interval
QRS Pattern: normal QRS
Ischemia: non-specific ST changes
*Critical Care Note
Total Time (30-74mins, 75-104mins- exclusive of procedures): Not Applicable
Update Note
Update Note:
Labs show pancytopenia with white count of 0.3 and ANC of 0. Hemoglobin 6.7 and platelets 19. Chest x-ray shows near complete opacification of the left lung as well as opacities in the right lower lung base.
Case was discussed with Ethel Brush PA-C at [facility]. Patient was seen at their urgent care 2 days ago. Thoracentesis was attempted at that time which was unsuccessful. Hemoglobin was 7.6 and platelets were in the 50s 2 days ago. She was
started on Neupogen injections and prophylactic Levaquin for neutropenia. [facility] oncology is recommending cultures, broad-spectrum antibiotics, and transfusion as well as transfer.
Discussed case with [facility] and unfortunately no bed is available currently. They are recommending admission here at [facility] for the time being. Discussed case with hospitalist team and patient admitted for further management.
ED Attending Note
-
Portions of this chart may have been created with voice recognition software.� Occasional wrong word or��sound alike� substitutions may have occurred due to the inherent limitations of voice recognition software.
Discharge Plan
Departure
Patient Disposition: Admit
Date of Disposition: 02/21/24
Time of Disposition: 12:08
Presentation/result/management discussed w/ accepting MD/DO: Hospitalist
Discharge Problem:
Acute on chronic hypoxic respiratory failure, Pancytopenia
Prescriptions:
No Action
amlodipine 10 mg tablet
10 mg PO Daily
cetirizine 10 mg Tablet
10 mg PO DAILY Qty: 0 0RF
levothyroxine 100 mcg Tablet
100 mcg PO SUMOTUWETHFR
furosemide 40 mg Tablet
40 mg PO DAILY
carvedilol 12.5 mg Tablet
12.5 mg PO BID
ondansetron 8 mg Tablet,Disintegrating
8 mg PO Q8HPRN PRN (Reason: nausea)
levothyroxine 100 mcg Tablet
200 mcg PO SA
allopurinol 300 mg Tablet
300 mg PO DAILY
levofloxacin 750 mg Tablet
750 mg PO HS
Patient Comments:
02/21/24: filled 02/18/24 for 7 tablets, to take 1 tablet once a day for 7 days
Anoro Ellipta 62.5-25 mcg/actuation Blister With Device
1 inh INHALATION R DAILY
Referrals:
Ysabel Pereira DO [Family Provider] -
Interventions
Interventions:
*Risk Screen - Suicide Last Done: 02/21/24 08:44
*General Assessment Last Done: 02/21/24 08:44
*Neglect/Abuse Screening Last Done: 02/21/24 08:44
ED- Fall Risk Assessment Last Done: 02/21/24 08:48
*ED COVID-19 Vaccine History Last Done: 02/21/24 08:44
ED- Cardiac Assessment Last Done: 02/21/24 08:52
ED- Pulmonary Assessment Last Done: 02/21/24 08:48
Discharge Date and Time
Print Language: SIERRA LEONEAN
[2024-02-21 09:05] LABS: Absolute Lymphocytes 0.2 10^3/uL (1.2-3.4); Mean Corp Hgb Conc. 32.8 g/dL (33.0-37.0); Mean Corpuscular Volume 85.4 fL (81.0-99.0); Mean Platelet Volume 10.3 fL (7.4-10.4); Nucleated Red Blood Cells % 0 %; Red Blood Cell Count 2.39 10^6/uL (4.20-5.40); Red Cell Dist. Width 15.3 % (11.5-14.5)
[2024-02-21 09:14] LABS: Hematocrit 20.4 % (37.0-47.0); Hemoglobin 6.7 g/dL (12.0-16.0); Platelet Count 19 10^3/uL (130-400)
[2024-02-21 09:19] LABS: White Blood Cell Count 0.3 10^3/uL (4.8-10.8)
[2024-02-21 09:28] LABS: ALT (SGPT) 20 U/L (0-35); AST (SGOT) 31 U/L (14-36); Albumin 2.7 g/dl (3.5-5.0); Alkaline Phosphatase 94 U/L (38-126); Blood Urea Nitrogen 28 mg/dl (7-17); Calcium 7.8 mg/dl (8.4-10.2); Carbon Dioxide 31 mmol/L (22-30); Chloride 97 mmol/L (98-107); Estimated Creatinine Clearance 65 ml/min; Glucose 94 mg/dl (70-99); Potassium 3.6 mmol/L (3.5-5.1); Sodium 134 mmol/L (135-145); eGFR > 60.00
[2024-02-21 09:32] LABS: Troponin I < 0.012 ng/ml
--- NOTE | 2024-02-21 10:42 | PHANOTE ---
med rec chani(02/21/24)- patient states she was ordered to halt Kateryna on Saturday for a procedure. Plans to resume afterwards, when given instruction to do so.
[2024-02-21] MEDS: MAXIPIME 2000 MG IV (12:02)
--- NOTE | 2024-02-21 12:52 | HPS.HSE ---
Addendum entered and electronically signed by Willie Whitten MD 02/21/24 19:10:
I personally performed a history and physical exam of the patient and discussed management with the resident. I reviewed the resident's note and agree with the documented findings and plan of care HPI/CC.
Patient on 15 L oxygen through mid flow. Dyspnic and speaking in short sentence at times.
CT chest PE
1. No evidence of pulmonary embolism.
2. Redemonstration of left-sided lung mass with increased left-sided airway obliteration and associated left lung atelectasis.
3. Severe right lower lobe atelectasis, progressed.
4. Large left-sided pleural effusion, progressed.
5. Stable small pericardial effusion.
6. Slightly progressed mediastinal lymphadenopathy.

1. Acute on chronic hypoxic respiratory failure -patient rapidly worsening hypoxia and requiring 15 L through mid flow. Admit to IMU and may need high flow to maintain good oxygen saturations. As patient has been off of blood thinners for 48 hours
and patient had a large just positional left perihilar mass concern of possible PE. CT chest PE was done in ER for that reason and ruled out any PE.
2. Left lung mass, malignant left pleural effusion -patient have complex left malignant pleural effusion and CT chest images reviewed. Thoracentesis has been attempted earlier in the week by [facility] department and by [facility] as well without
any success. Apparently there was plan for patient to have a CT chest tube placed with tPA/DNase instillation for this part. ER has discussed this with [facility] PA who is accepted the patient although does not have any bed. Case
discussed with local pulmonology who recommended to continue transfer as patient has complex underlying malignancy and may not be amenable to be treated in [place].
3.Pancytopenia -secondary to chemotherapy. Patient ordered 1 unit of blood transfusion for hemoglobin of 6.7. Platelet count of 19 K. Monitor for any bleeding diathesis. Oncology consulted for follow along. Patient takes Neupogen at home
continue
Patient at high risk of respiratory failure/cardiac arrest�discussed with patient with family at bedside. Initially patient agreeable to be DNR/DNI in light of guarded prognosis if patient had cardiac arrest.
Patient later have revoked DNR and wanted to remain full code.
Dispo: [facility] transfer once bed available.
Original Note:
Family Physician
-
Family Physician: Ysabel Pereira DO
Chief Complaint
-
Acute shortness of breath
History of Present Illness
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 COPD, CHF, chronic respiratory failure on 3 L at baseline had an abrupt onset of dyspnea this morning
she was hypoxic to the high 70s at home on pulse ox currently she is on 15 L mid flow and satting in the low 90s. In the ED she got 1 dose of IV cefepime and 2000 mg as well as 1 unit of packed red blood cells. She has had 3 so thoracentesis's
previously as well as 1 that was scheduled for today, intrapleural fibrinolysis with tPA and DNase was planned. She has been holding her Eliquis for the past 2 days in preparation. Chest x-ray in ED showed an opacity of the left lung. She gets
her chemotherapy at [facility] and wants to be transferred there once a bed is available. Her oncologist are at [facility] and she was advised to come to [facility] in the interim until bed is available for her. Labs on admission demonstrated a
white blood cell count of 0.3, ANC of 0, hemoglobin of 6.7 and platelets of 19.
Medical History
Past Medical History
Past Medical History: Reports Cancer, CHF, COPD, HTN and Hypercholesterolemia
Additional Past Medical History:
Hypothyroidism
Past Surgical History: Reports None
Additional Past Surgical History:
Serial thoracentesis x 3
Social History
Tobacco: Former Smoker ([id number])
Alcohol: None
Drug: None
Personal: Single
Living: With Family
Employment: Not Employed
Family History
Family History: Not pertinent
Allergies / Home Medications
Allergies reflects when Allergies were last updated in [facility] [employer].
Home Medications with original date entered in [facility] [employer]
Allergy/Medication List:
amlodipine 10 mg tablet
10 mg PO Daily
cetirizine 10 mg Tablet
10 mg PO DAILY Qty: 0 0RF
levothyroxine 100 mcg Tablet
100 mcg PO SUMOTUWETHFR
furosemide 40 mg Tablet
40 mg PO DAILY
carvedilol 12.5 mg Tablet
12.5 mg PO BID
ondansetron 8 mg Tablet,Disintegrating
8 mg PO Q8HPRN PRN (Reason: nausea)
levothyroxine 100 mcg Tablet
200 mcg PO SA
allopurinol 300 mg Tablet
300 mg PO DAILY
levofloxacin 750 mg Tablet
750 mg PO HS
Patient Comments:
02/21/24: filled 02/18/24 for 7 tablets, to take 1 tablet once a day for 7 days
Anoro Ellipta 62.5-25 mcg/actuation Blister With Device
1 inh INHALATION R DAILY
Review of Systems
-
History Source: Patient
A 12 point ROS was completed and negative except as noted: Yes
Constitutional: Reports No Symptoms
Respiratory: Reports Cough and Trouble Breathing
Cardiac: Reports No Symptoms
Abdomen/GI: Reports No Symptoms
: Reports No Symptoms
Neurological: Reports No Symptoms
Psych: Reports No Symptoms
Physical Exam
Vital Signs
Vital Signs
Temp Pulse Resp BP Pulse Ox
97.7 F 80 16 113/48 91
02/21/24 12:39 02/21/24 12:39 02/21/24 12:39 02/21/24 12:39 02/21/24 12:30
Physical Exam
General: Well Developed, No Apparent Distress and Comfortable
Respiratory: Wheezes, Rales, Rhonchi and Crackles
Cardiac: S1/S2 and Regular Rhythm
GI: Soft, Non Tender, Non Distended and Normal Bowel Sounds
Skin: Warm and Dry
Neuro: Awake, Alert, Oriented and AO x 3
Psych: Calm and Intact Judgment/Insight
Laboratory Results
-
02/21/24 08:55
02/21/24 08:55
Laboratory Results
Total Bilirubin 1.0 mg/dl (0.2-1.3) 02/21/24 08:55
AST 31 U/L (14-36) 02/21/24 08:55
ALT 20 U/L (0-35) 02/21/24 08:55
Alkaline Phosphatase 94 U/L (38-126) 02/21/24 08:55
Troponin I < 0.012 ng/ml 02/21/24 08:55
Data Reviewed
-
Diagnostic Radiology: Report Reviewed by me and Discussed with Physician
CT Scan: Image Personally Visualized and interpreted, Report Reviewed by me and Discussed with Physician
Lab Data: Labs Reviewed by me and Discussed with Physician
Impression/Plan
-
IMPRESSION:
64 female with past medical history of stage IV lung cancer status post 1 cycle chemotherapy presents with with an abrupt onset of dyspnea and hypoxia
PLAN:
#Acute hypoxemic respiratory failure
-Past medical history of COPD, CHF, chronic respiratory failure on 3 L oxygen at baseline
-Patient endorses acute abrupt shortness of breath starting this morning, home pulse ox's were in the high 70s
-Currently on 15 L mid flow, satting in the low 90s
-Chest x-ray demonstrated a large left-sided pleural effusion
-Physical exam demonstrated diffuse crackles throughout the lungs on the left
-Pulmonary was consulted
#Stage IV lung carcinoma, presumed small cell
-Brain MRI was free of metastasis
-Patient receives chemotherapy, at [facility], status post 1 cycle chemotherapy on February 09, , , . Her oncologist are all located at [facility]
-Tentatively planning to transfer patient to [facility] once a bed is available. Patient was advised to stay at [facility] in the interim.
-Patient has been getting serial thoracentesis x 3, one was tried recently and they were unable to finish the procedure at that time
-Today they tentatively planned to break up with intrapleural pleuritic fibrinolysis agents, patient was holding Eliquis for past 2 days in preparation for procedure
-Interventional radiology was consulted
-Oncology was consulted
-Repeat chest CT with IV contrast was ordered
#Pancytopenia
-Status post first cycle chemotherapy, February 09, , ,
-Patient received 2000 mg IV cefepime in the ED, as per [facility] recommendations, patient afebrile
-Likely chemotherapy-induced pancytopenia
-Hemoglobin on admission 6.7 status post 2 unit packed red blood cell
-Platelets 19
-Holding platelet transfusion currently
-White blood cells 0.3
-ANC 0.0, patient neutropenic by definition. On neutropenic precautions
DNR/DNI
[2024-02-21 19:53] LABS: Hematocrit 21.9 % (37.0-47.0); Hemoglobin 7.3 g/dL (12.0-16.0)
[2024-02-21] MEDS: NON-FORMULARY ITEM 1 UNIT SC (19:54)
[2024-02-21] MEDS: ZYLOPRIM 300 MG PO (20:02)
[2024-02-21] MEDS: STRIVERDI RESPIMAT 2 PUFF INH (20:30)
[2024-02-21] MEDS: SPIRIVA RESPIMAT 2.5 MCG 2 PUFF INH (20:31)
[2024-02-21] MEDS: LASIX 40 MG PO (20:39)
--- NOTE | 2024-02-21 22:33 | PTCARENOTE ---
Pt received at beginning of shift resting in bed with family at bedside. AAOx3. No acute distress. POX 90-92% on 15L MF. POX eventually down to 79% as night progressed. RT TT'd and placed pt on HF pox 88-95%. When asleep pt does intermittently desat
to 79% but evens out into the 80's. Will consider nonrebreather and MF for overnight. Pt has some SOB with speaking at times. Left lung course, rhonchi throughout. Right lung diminished. SR on CM. Afebrile. Purewick in place draining michelle urine.
Currently receiving 2nd unit PRBC. Repeat Hgb after 1st unit 7.4. No s/s of reaction after 15 mins. BP 97/51. After TT'ing with Eliecer CAMACHO will hold Coreg for now but ok for PO Lasix. Lasix given as ordered. Pt brought in her own Xarxio. Sent to
pharmacy and now stored in IMU [employer] fridge. Rest of assessment as documented. Call duarte remains within reach. Will continue to monitor.
[2024-02-21] MEDS: COREG 12.5 MG PO (23:50)
[2024-02-22] VITALS (12 sets, daily range): BP systolic 91–118; BP diastolic 56–72; PULSE 70–75; BMI 41.5
[2024-02-22 00:53] LABS: B.E. 6.4 mmol/L; HCO3 31.8 mmol/L (21-28); O2 Saturation % 87.1 % (94-98); PCO2 49 mmHg (32-35); pH 7.42 (7.35-7.45)
[2024-02-22 00:54] LABS: PO2 52 mmHg (83-108)
--- NOTE | 2024-02-22 01:10 | PTCARENOTE ---
Pt continued to desat into low 80's while on HF w/NRB mask. Mentating, slightly sob, RR's 17-20. TT'd Nancy RESENDIZNP and her and Yumiko CAMACHO up to see pt. After discussion with pt, pt still wishes to remain full code, agrees to ABG and BIPAP if
necessary. ABG critial PO2 52. RT placed pt on CPAP 12//15L pox currently 92-93%. Pt resting comfortably. Call duarte remains within reach. Will continue to monitor.
--- NOTE | 2024-02-22 01:47 | PTCARENOTE ---
On CPAP pox holding at 85-86%. TT'd Eliecer CAMACHO who stated pt not candidate for intubation and BIPAP would not help will so continue to monitor for now since pt asymptomatic other than low pox. If she becomes symptomatic will need to contact
pulmonary. RT updated. Will continue to monitor.
--- NOTE | 2024-02-22 02:20 | W.PN.UPDATE ---
Update Note
Progress Note Update
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 Patient seen and evaluated. Patient Ox3, conversant and is not in any distress. stated feeling okay and not in any distress. Lungs rhonchi,
and diminished, and was given neb tx by RT. Discussed the need of ABG and possible intubation, patient agreed. ABG results noted PO2 low, RT placed Cpap. Patient came up to 91% then back down to 86% with good Phleth, patient continuos to be
asymptomatic, Will continue patient on Cpap at present.
[2024-02-22 04:52] LABS: % Eosinophils 3.7 % (0-6); % Immature Granulocytes 1.9 % (0-0.5); % Lymphocytes 55.6 % (20.5-51.1); % Monocytes 11.1 % (1.7-9.3); % Neutrophils 27.7 % (42.2-75.2); Absolute Lymphocytes 0.3 10^3/uL (1.2-3.4); Absolute Monocytes 0.1 10^3/uL (0.1-0.6); Hematocrit 26.6 % (37.0-47.0); Mean Corp Hgb Conc. 33.5 g/dL (33.0-37.0); Mean Corpuscular Hgb 28.6 pg (27.0-31.0); Mean Corpuscular Volume 85.5 fL (81.0-99.0); Mean Platelet Volume 10.5 fL (7.4-10.4); Nucleated Red Blood Cells % 0 %; Red Blood Cell Count 3.11 10^6/uL (4.20-5.40)
[2024-02-22 05:15] LABS: Blood Urea Nitrogen 22 mg/dl (7-17); Calcium 7.7 mg/dl (8.4-10.2); Carbon Dioxide 31 mmol/L (22-30); Chloride 100 mmol/L (98-107); Estimated Creatinine Clearance 79 ml/min; Glucose 89 mg/dl (70-99); Potassium 2.9 mmol/L (3.5-5.1); Sodium 136 mmol/L (135-145); eGFR > 60.00
--- NOTE | 2024-02-22 05:27 | PTCARENOTE ---
K+ 2.9 this am. Joey CAMACHO TT'd and made aware. Awaiting order to be put in to replete.
[2024-02-22] MEDS: SYNTHROID 200 MCG PO (05:39)
[2024-02-22] MEDS: KCL 270 MEQ IV (05:39)
[2024-02-22] MEDS: FLUSH (NSS) 1 FLUSH IV (05:40)
[2024-02-22 06:22] LABS: Hemoglobin 8.9 g/dL (12.0-16.0)
[2024-02-22 06:23] LABS: Platelet Count 10 10^3/uL (130-400); White Blood Cell Count 0.5 10^3/uL (4.8-10.8)
--- NOTE | 2024-02-22 06:57 | W.PN.UPDATE ---
Update Note
Progress Note Update
platelet 10, On Neupogen, Oncology Consulted. no active bleeding. Transfusion on hold at present.
[2024-02-22] MEDS: SPIRIVA RESPIMAT 2.5 MCG 2 PUFF INH (07:20)
[2024-02-22] MEDS: STRIVERDI RESPIMAT 2 PUFF INH (07:20)
--- NOTE | 2024-02-22 07:45 | PTCARENOTE ---
Pt rec'd from steward/stewardess night on CPAP mask, sats consistent in low to mid 80s, RR 25, pt stated 'this sucks.' Mentation still AOX3. Plan discussed with RT Eleuterio, smalled mask placed for better seal, may need to change to Bipap, will continue to closely
monitor. Emotional support provided.
[2024-02-22] MEDS: COREG PO (08:52)
[2024-02-22] MEDS: LASIX 40 MG IV (08:56)
[2024-02-22] MEDS: ZYLOPRIM 300 MG PO (08:57)
[2024-02-22] MEDS: ZYRTEC 10 MG PO (08:58)
--- NOTE | 2024-02-22 09:03 | CON.PUL ---
Consultation
Consultation Request
Date/Time Consultation Requested: 02/22/24
Date/Time Consultation Performed: 02/22/24
Performing Provider: Bandar
Reason for Consultation: SOB/hypoxemia
Medical History
-
History of Present Illness:
Patient is a 64-year-old female with recently diagnosed stage IV small cell lung cancer status post 1 round of chemo, following at [facility]; COPD on 3 L O2 at baseline, CHF presenting to ER for hypoxemia and acute on chronic shortness of breath
day of admission. She was reportedly hypoxemic into the 70s despite her 3 L O2 at home. She was placed on 15 L mid flow satting in the low 90s on arrival to the ER. CT chest demonstrating progressive lung findings, with total involvement of the
left side with large pleural effusion. She has new right-sided basilar disease.
She has had 4 thoracentesis in the past 6 weeks due to recurrent malignant pleural effusion. Last few attempts at thoracentesis were unsuccessful due to coagulation of malignant bloody effusion.
Of note, her CBC demonstrates severe pancytopenia, platelets of 10. She is currently advanced to max settings on high flow nasal cannula.
Admitted to IMU.
Past Medical History
Past Medical History: Other (see below)
Social History
Tobacco: Former Smoker
Alcohol: None
Drug: None
Family History
Family History: Reviewed & Not Pertinent
Allergies / Home Medications
Allergies
Allergy/AdvReac Type Severity Reaction Status Date / Time
No Known Allergies Allergy Verified 02/14/24 10:30
Home Medications
�Medication �Instructions �Recorded �Confirmed �Last Taken �Type
amlodipine 10 mg tablet 10 mg PO Daily Blood Pressure 01/20/24 02/21/24 02/20/24 History
cetirizine 10 mg tablet 10 mg PO DAILY #0 tabs 01/22/24 02/21/24 02/20/24 Rx
levothyroxine 100 mcg tablet 100 mcg PO SUMOTUWETHFR 01/31/24 02/21/24 02/21/24 History
allopurinol 300 mg tablet 300 mg PO DAILY 02/21/24 02/21/24 02/20/24 History
carvedilol 12.5 mg tablet 12.5 mg PO BID 02/21/24 02/21/24 02/20/24 History
filgrastim 480 mcg/0.8 mL 480 mcg SC DAILY 02/21/24 02/21/24 02/20/24 19:00 History
injection syringe (Neupogen)
furosemide 40 mg tablet 40 mg PO DAILY 02/21/24 02/21/24 02/20/24 History
levofloxacin 750 mg tablet 750 mg PO HS 02/21/24 02/21/24 02/20/24 History
levothyroxine 100 mcg tablet 200 mcg PO SA 02/21/24 02/21/24 02/15/24 History
ondansetron 8 mg disintegrating 8 mg PO Q8HPRN PRN nausea 02/21/24 02/21/24 Unknown History
tablet
umeclidinium 62.5 mcg-vilanterol 1 inh inhalation R DAILY 02/21/24 02/21/24 02/20/24 History
25 mcg/actuation powdr for
inhalation (Anoro Ellipta)
Review of Systems
-
History Source: Patient
All other systems: Negative unless noted
Vitals / Labs / Diagnostic Testing
Vital Signs
Temp Pulse Resp BP Pulse Ox
97.1 F 79 21 91/62 85
02/22/24 07:49 02/22/24 08:56 02/22/24 08:00 02/22/24 08:56 02/22/24 08:00
Lab Data
02/22/24 04:31
Laboratory Results
02/22/24
00:44
pH 7.42
pCO2 49 H
pO2 52 L*
HCO3 31.8 H
O2 Delivery Level
Diagnostic Testing:
Physical Exam
-
HEENT: Normocephalic, Anicteric and Moist Mucous Membranes
Cardiovascular: S1/S2 and Regular Rhythm
Respiratory: Accessory Resp Muscle Use (moderate) and Other (decreased BS B/L)
GI: Soft, Non Distended and Non Tender
Neurology: Awake, Alert, Oriented, AO x 3 and No Motor Deficits
Skin: Warm and Dry
General: Respiratory Distress (moderate, on HFNC)
Assessment
-
Patient is a 64-year-old female with recently diagnosed stage IV small cell lung cancer status post 1 round of chemo, following at [facility]; COPD on 3 L O2 at baseline, CHF presenting to ER for hypoxemia and acute on chronic shortness of breath
day of admission. She was reportedly hypoxemic into the 70s despite her 3 L O2 at home. She was placed on 15 L mid flow satting in the low 90s on arrival to the ER. CT chest demonstrating progressive lung findings, with total involvement of the
left side with large pleural effusion. She has new right-sided basilar disease. We are consulted for evaluation of hypoxemia in setting of advancing stage IV primary lung cancer 02/22/24.
Acute on chronic hypoxic respiratory failure, on high flow nasal cannula
Large left-sided recurrent pleural effusion
Suspect advancing stage IV primary lung cancer with severe tumor burden
Total occlusion of left side bronchus
Severe pancytopenia
Hypocalcemia
Hypokalemia
Conditions present prior to admission:
Stage IV non-small cell lung cancer status post 1 round of chemotherapy, following at [facility]
Hospitalization 11/2022-hypoxemic hypercapnic respiratory failure, shock, MONICA moderate to large pericardial effusion and COPD exacerbation
COPD on 3L O2 at baseline
Former [id number]-year quit 62 years old
CHF preserved EF.
Morbid obesity-no FAYE on PSG 01/2023-significant nocturnal hypoxemia
Postnasal drip.
Allergies.
Hypertension.
Chronic kidney disease.
Hypothyroid.
Pericardial effusion 11/2022
Plan
Hypoxemia noted on arrival, O2 negar 70s reportedly
She is now on max settings of HFNC, satting >95%
Baseline use of 3L at home
Prior history of lung disease is noted including advanced stage IV NCSLC, COPD, recurrent malignant pleural effusion
She has had 4 thoracentesis in the past 6 weeks due to recurrent malignant pleural effusion.
Last few attempts at thoracentesis were unsuccessful due to coagulation of malignant bloody effusion.
Radiographs, office records and recommendations, and echocardiograms are summarized below
Thoracentesis reviewed:
01/20/24- 2L
01/22/24- 1.2L
01/31/24- 2L
02/09/24- 1L
02/14/24- thora cancelled
Reviewed potential Pleurx catheter with recurrent rapid pleural fluid accumulation; however this is high risk given coagulopathy
Reviewed with IR--high risk case
We discussed role on bronchoscopy and intervention to evaluate her tumor burden which would certainly place her at risk for intubation with prolongation with little to no change in her outcomes
We do not offer tumor debulking therapy here, she would need to be transferred to a tertiary center with interventional pulmonary capabilities
She has been declined transfer to [facility]
Of note, her CBC demonstrates severe pancytopenia, platelets of 10.
Onc following
Transfuse as necessary
Hold any OAC/DVT ppx
Prognosis exceedingly poor given advancement of her CT findings
We had a long discussion with the family including myself, Dr. Whitten, Dr. Alvarado and her 2 daughters regarding her poor prognosis and futility of advanced procedures. It is highly likely that she may not survive her current admission and she
remains full code as well. They were very tearful in receiving this information, we will allow them to process this information and review again decision making. If she does wish to pursue all measures including intubation, she may need to
transfer to ICU if she were to clinically deteriorate.
Care team is updated
Diagnostic Data:
Chest x-ray 11/30/2022-moderate cardiomegaly with suspected mild interstitial cardiogenic pulm edema, large amount of opacification left lower lobe probable compressive atelectasis adjacent to small to moderate left pleural effusion
Chest x-ray 01/19/2024-near complete opacification left hemithorax with shift of mediastinal structures to the right favoring large pleural effusion with underlying compressive atelectasis
Chest x-ray 01/20/2024-improved aeration left lung, loculated pleural effusion
CT chest 01/19/24-13 cm heterogeneous mass left hilum extending into the medial aspects of the left upper lobe with high level suspicion for pulmonary malignancy and masses associated with complete atelectasis of the left lung, large left pleural
effusion and several pleural-based probable malignant soft tissue implants along with mediastinal lymphadenopathy and encasement and partial obstruction left main pulmonary artery, left upper lobe pulmonary artery and left lower lobe pulmonary
artery and probable 3 cm adrenal metastases and probable 3 cm area of malignant adenopathy
Echo 12/03/22: Limited echo. Normal LV size and function. EF 60-65%. Mild concentric LVH. Moderate to large pericardial effusion without evidence of hemodynamic compromise.
Echocardiogram 01/19/2023-EF 55-60%, small to moderate pericardial effusion
PFTs 02/13/23: FEV1 1.84L 78%, FVC 2.59L 85%, ratio 71.� Post FEV1 1.8L 76%.� No significant bronchodilator response.� TLC 4.66L 101%, DLCO 47% (spirometry mildly reduced suggesting restriction, TLC normal, there is a moderate diffusion impairment)
PSG 01/29/23: AHI 1.0, O2 negar 78%, mild snoring. TST 360 mins, SE 76.8%
Reports and relevant images were personally reviewed.
Total time spent on this consultation __81__ includes review of history, physical exam, medications, laboratory data, personal review of imaging, extensive review of outpatient records, discussion with care team and respiratory therapy.
[2024-02-22] MEDS: LASIX PO (09:06)
--- NOTE | 2024-02-22 09:06 | W.PN.HOSP.TC ---
Today's Communication/Plan
-
see note
Assessment / Plan
Assessment / Plan
CT chest PE
1. No evidence of pulmonary embolism.
2. Re-demonstration of left-sided lung mass with increased left-sided airway obliteration and associated left lung atelectasis.
3. Severe right lower lobe atelectasis, progressed.
4. Large left-sided pleural effusion, progressed.
5. Stable small pericardial effusion.
6. Slightly progressed mediastinal lymphadenopathy.

1. Acute on chronic hypoxic respiratory failure
-Secondary to complex left pleural effusion causing left lung collapse and right lower lobe atelectasis/pneumonia
-patient rapidly worsening hypoxia and requiring 15 L through mid flow in ER.
-Overnight oxygen requirement worsened and initially required CPAP followed by high flow support currently
-ABG done in night showing pCO2 of 42 and pO2 of 52
-CT chest PE done with multiple risk factor of being off of Eliquis/perihilar small cell lung cancer possibly invading vasculature. no PE was found
2. Left lung SCC
-Recent diagnosis at and patient getting cancer care at [facility]
-post chemo round #1 last week
-[facility] accepted patient for transfer to their care but needs to be stable for transfer
3. Left sided malignant pleural effusion
-Patient known to have recurrent left-sided effusion
-Patient underwent thoracentesis of 01/19 of 2 L serosanguineous fluid. Cytopathology positive for small cell cancer.
-Repeat thoracentesis on 01/21 with drainage of 1.2 L serosanguineous pleural fluid
-Third thoracentesis on 01/30 with drainage of 2 L straw pleural fluid
-For thoracentesis on 02/08 with drainage of 1 L sanguinous pleural fluid
-IRAD attempted thoracentesis on 02/13 but was unsuccessful. According to verbal report [facility] attempted on 02/18 which was unsuccessful as well.
-Discussed with pulmonology/IRAD and patient may require Pleurx tube vs CT tube. I have reviewed CT chest images personally and there is significant layering on effusion and with malignancy/exudative nature of fluid possibly too viscous to be
drained.
4. Pancytopenia
- TWBC 0.5, Plt 10 today
- got half infusion of Neulasta, maintained on Neupogen.
- transfuse PRN hbg < 7 or Plt < 10 or bleeding with 50K
We have discussed at length with family that patient at this point have a sizable left side malignant pleural effusion which is likely not amenable to drainage. Also patient severely thrombocytopenic and at risk of bleeding. Multidisciplinary
evaluation was done including interventional radiology, in his opinion even if drainable left perihilar mass likely compressing bronchus and left lung probably not irrigating to expand enough after thoracentesis. Overall patient condition remains
poor with prognosis grim at this point.
This has been clarified with all the consultants on board and bedside discussion was done with both daughters.
Critical care time - 55 mins
Anticipated Discharge: > 48 hours
Subjective/Interval History
-
Date of Service: February 22, 2024
Patient developed new worsening hypoxia overnight and was tried on nonrebreather/CPAP
ABG showing PaO2 of 52 in the night
In the morning SpO2 still low in 80-85 range, already switched to high flow on 50 L/min and SpO2 improved to 92-95%
No tachycardia
No excessive dyspnea/chest discomfort
Patient becoming severely pancytopenic although no bleeding diathesis.
Objective Data
-
Labs:
Laboratory Results
02/22/24 02/22/24 02/22/24
00:44 04:31 12:00
WBC 0.5 L*
Hgb 8.9 L D
Hct 26.6 L
Plt Count 10 L* D
HCO3 31.8 H
Sodium 136 Pending
Potassium 2.9 L Pending
Chloride 100 Pending
Carbon Dioxide 31 H Pending
BUN 22 H Pending
Creatinine 0.8 Pending
Glucose 89 Pending
Calcium 7.7 L Pending
Vital Signs:
Vital Signs
Temp Pulse Resp BP Pulse Ox
97.1 F 79 21 91/62 85
02/22/24 07:49 02/22/24 08:56 02/22/24 08:00 02/22/24 08:56 02/22/24 08:00
I&O
02/21/24 02/22/24 02/23/24
06:59 06:59 06:59
Intake Total 770 / 770
Output Total 1000 / 1000
Balance -230 / -230
Review of Systems
-
Respiratory: Denies Cough or Trouble Breathing
Cardiac: Reports No Symptoms
Abdomen/GI: Reports No Symptoms
Physical Exam
-
General: No Apparent Distress
HEENT: Oxygen (50L high flow/min)
Respiratory: Rhonchi and Other (absent breath sounds )
Cardiac: Regular Rhythm and S1/S2; Negative Murmur
GI: Soft, Nontender and Nondistended
Musculoskeletal: No Edema
Neuro: Awake, Alert, Oriented and No Motor Deficits
[2024-02-22] MEDS: MAXIPIME 2000 MG IV ×2 (09:15→17:14)
--- NOTE | 2024-02-22 09:15 | PTCARENOTE ---
Pt not maintaining sat on cpap. Dr. polanco and RT and bedside, transitioned pt back to high flow at 100% and 50L. Satting high 90s and feeling much better. Teeth brushed, oral meds given, ordering breakfast. Pt given IV Lasix and abx per order.
Continuing to closely monitor. Will wean 02 as tolerated.
[2024-02-22] MEDS: STERILE WATER FOR INJECTION 10 ML IV ×2 (09:25→17:14)
--- NOTE | 2024-02-22 09:47 | PTCARENOTE ---
Family meeting with daughters and care team, Jenny Gardiner, Lindsey and patient. Emotional support provided. Traffic Recorder requested by this RN for later this afternoon.
--- NOTE | 2024-02-22 09:53 | CON.ONC ---
Impression
Impression
Acute on chronic hypoxic respiratory failure, secondary to extensive stage small cell lung cancer, malignant pleural effusion, atelectasis
Pancytopenia from chemotherapy; received ak chin etoposide February 09 through February 11. Received approximately one half dose of Neulasta secondary to malfunction of on body injector
Plan
Plan
Met with patient, family, pulmonary and hospitalist. Prognosis is quite guarded.
She received cycle 1 of chemotherapy about 10 days ago, too soon to know if her cancer is chemosensitive, though small cell lung cancer usually is initially
If feasible, would consider thoracentesis, though risky with significant thrombocytopenia. Would need platelet transfusion prior.
Continue daily GCSF, monitor CBC, on Cefepime, though afebrile and no obvious infection
I've reached out to on-call med onc at [facility], awaiting call back
Agree w/ recommendations to strongly consider DNR
Patient History
History of Present Illness
This is a 64yo F w/ recently diagnosed extensive stage SCLC. She started chemo w/ ak chin/etoposide February 09-, with GCSF on 02/12, though the On-body injector only delivered 1/2 dose. She was getting home Neupogen thereafter. She's been struggling
with increasing dyspnea, requiring recurrent thoracenteses. She was seen at [facility] earlier this week with a tentative thoracentesis, which was not successful. There was consideration for chest tube with tPA instillation as well. She presented to
the emergency room at [facility] yesterday with increased shortness of breath, requiring 15 L high flow oxygen. CT scans show total opacification of the left hemithorax with tumor, fluid, and atelectasis, and also progression of
atelectasis in the right lower lung.
Currently, the patient's wishes are to be full code. Her 2 daughters are at the bedside.
Past-Medical/Surgical History
Past medical and surgical history includes extensive stage small cell lung cancer, CHF, COPD, hypertension and hypercholesterolemia.
Social history: She is a former smoker, denies drug or alcohol use. She lives with family, is single.
Family history: Noncontributory
Patient Medication
�Medication �Instructions �Recorded �Confirmed �Last Taken �Type
amlodipine 10 mg tablet 10 mg PO Daily Blood Pressure 01/20/24 02/21/24 02/20/24 History
cetirizine 10 mg tablet 10 mg PO DAILY #0 tabs 01/22/24 02/21/24 02/20/24 Rx
levothyroxine 100 mcg tablet 100 mcg PO SUMOTUWETHFR 01/31/24 02/21/24 02/21/24 History
allopurinol 300 mg tablet 300 mg PO DAILY 02/21/24 02/21/24 02/20/24 History
carvedilol 12.5 mg tablet 12.5 mg PO BID 02/21/24 02/21/24 02/20/24 History
filgrastim 480 mcg/0.8 mL 480 mcg SC DAILY 02/21/24 02/21/24 02/20/24 19:00 History
injection syringe (Neupogen)
furosemide 40 mg tablet 40 mg PO DAILY 02/21/24 02/21/24 02/20/24 History
levofloxacin 750 mg tablet 750 mg PO HS 02/21/24 02/21/24 02/20/24 History
levothyroxine 100 mcg tablet 200 mcg PO SA 02/21/24 02/21/24 02/15/24 History
ondansetron 8 mg disintegrating 8 mg PO Q8HPRN PRN nausea 02/21/24 02/21/24 Unknown History
tablet
umeclidinium 62.5 mcg-vilanterol 1 inh inhalation R DAILY 02/21/24 02/21/24 02/20/24 History
25 mcg/actuation powdr for
inhalation (Anoro Ellipta)
Active Medications
Generic Name Dose Route Start Last Admin
Trade Name Freq PRN Reason Stop Dose Admin
Allopurinol 300 mg 02/21/24 18:15 02/22/24 08:57
Allopurinol 300 Mg Tablet PO 03/20/24 18:14 300 mg
DAILY MIKE Administration
Amlodipine Besylate 10 mg 02/22/24 08:00 02/22/24 08:59
Amlodipine 10 Mg Tablet PO 03/21/24 07:59 Not Given
Daily MIKE
Carvedilol 12.5 mg 02/21/24 20:00 02/22/24 08:52
Carvedilol 12.5 Mg Tablet PO 03/20/24 19:59 Not Given
BID MIKE
Cefepime HCl 2,000 mg 02/22/24 10:00 02/22/24 09:15
Cefepime Hcl 2,000 Mg/12.5 Ml Vial IV 2,000 mg
Q8H MIKE Administration
Cetirizine HCl 10 mg 02/22/24 08:00 02/22/24 08:58
Cetirizine Hcl 10 Mg Tablet PO 03/21/24 07:59 10 mg
DAILY MIKE Administration
Levothyroxine Sodium 100 mcg 02/23/24 06:00
Levothyroxine 100 Mcg Tablet PO 03/22/24 05:59
SuMoTuWeThFr@0600 MIKE
Levothyroxine Sodium 200 mcg 02/22/24 06:00 02/22/24 05:39
Levothyroxine 100 Mcg Tablet PO 03/21/24 05:59 200 mcg
SA@0600 MIKE Administration
Zarxio 480mcg Sc 0 unit 02/21/24 20:00 02/21/24 19:54
Daily@1900 SC 03/20/24 19:59 1 unit
DAILY@1900 MIKE Administration
Olodaterol 2 puff 02/21/24 20:00 02/22/24 07:20
Olodaterol (Striverdi Respimat) 2.5 Mcg Inhaler INH 03/20/24 19:59 2 puff
R DAILY MIKE Administration
Protocol
Ondansetron HCl 8 mg 02/21/24 18:59
Ondansetron 4 Mg Tablet PO 03/20/24 18:58
Q8HPRN PRN
nausea
Polyethylene Glycol 17 grams 02/21/24 18:15
Polyethylene Glycol Powder 17 Grams Packet PO 03/20/24 18:14
DAILYPRN PRN
constipation
Senna/Docusate Sodium 1 tablet 02/21/24 18:15
Docusate W/Senna (Bee-Colace) Tablet PO 03/20/24 18:14
BIDPRN PRN
constipation
Sodium Chloride 0 flush 02/22/24 06:00 02/22/24 05:40
Sodium Chloride 0.9% (Flush) Syringe IV 03/21/24 05:59 1 flush
PER PROTOCOL MIKE Administration
Sterile Water 10 ml 02/22/24 10:00 02/22/24 09:25
Sterile Water For Injection 10 Ml Vial IV 03/21/24 09:59 10 ml
Q8H MIKE Administration
Tiotropium [place] 2 puff 02/21/24 20:00 02/22/24 07:20
Tiotropium (Spiriva Respimat) 2.5 Mcg Inhaler INH 03/20/24 19:59 2 puff
R DAILY MIKE Administration
Protocol
Review of Systems
-
All Other Systems: Not reviewed unless documented
Physical Exam
-
General: No Apparent Distress and Comfortable
Neurology: Non Focal and No Lateralizing Symptoms
Skin: Warm and Dry
Psych: Intact Judgement/Insight
Labs
Lab Results
WBC 0.5 10^3/uL (4.8-10.8) L* 02/22/24 04:31
RBC 3.11 10^6/uL (4.20-5.40) L 02/22/24 04:31
Hgb 8.9 g/dL (12.0-16.0) L D 02/22/24 04:31
Hct 26.6 % (37.0-47.0) L 02/22/24 04:31
MCV 85.5 fL (81.0-99.0) 02/22/24 04:31
MCH 28.6 pg (27.0-31.0) 02/22/24 04:31
MCHC 33.5 g/dL (33.0-37.0) 02/22/24 04:31
RDW 15.0 % (11.5-14.5) H 02/22/24 04:31
Plt Count 10 10^3/uL (130-400) L* D 02/22/24 04:31
MPV 10.5 fL (7.4-10.4) H 02/22/24 04:31
Abs Immat Gran (auto) 0.0 10^3/uL (0-0.05) 02/21/24 08:55
Absolute Neuts (auto) 0.0 10^3/uL (1.4-6.5) L* 02/21/24 08:55
Absolute Lymphs (auto) 0.2 10^3/uL (1.2-3.4) L 02/21/24 08:55
Absolute Monos (auto) 0.0 10^3/uL (0.1-0.6) L 02/21/24 08:55
Absolute Eos (auto) 0.0 10^3/uL (0-0.7) 02/21/24 08:55
Absolute Basos (auto) 0.0 10^3/uL (0-0.2) 02/21/24 08:55
Immature Gran % 0.0 % (0-0.5) 02/21/24 08:55
Neutrophils % 12.0 % (42.2-75.2) L 02/21/24 08:55
Lymphocytes % 76.0 % (20.5-51.1) H 02/21/24 08:55
Monocytes % 8.0 % (1.7-9.3) 02/21/24 08:55
Eosinophils % 4.0 % (0-6) 02/21/24 08:55
Basophils % 0.0 % (0-2) 02/21/24 08:55
Creatinine 0.8 mg/dL (0.6-1.0) 02/22/24 04:31
Vital Signs
Vital Signs
Temp Pulse Resp BP Pulse Ox
97.1 F 79 18 91/62 100
02/22/24 07:49 02/22/24 08:56 02/22/24 08:03 02/22/24 08:56 02/22/24 09:18
[2024-02-22 10:54] LABS: Magnesium 1.9 mg/dl (1.6-2.3)
--- NOTE | 2024-02-22 11:57 | W.PN.UPDATE ---
Update Note
Progress Note Update
- IR consulted for possible drainage of malignant L pleural effusion. Pt known to our service having undergone prior thoras, last one performed by myself on 02/08. This thora was difficult to perform and required placing pt in R decubitus positioning
to find a window for drainage
- In the interim, she has had two unsuccessful thoracentesis at [facility] and CT from yesterday showed extensive pleural disease and complete occlusion of the L main stem bronchus. She is also now profoundly thrombocytopenic, 10k, high bleeding risk for
any intervention.
- Unfortunate situation, however I don't think any attempted drainage would be beneficial at this juncture
[2024-02-22 13:07] LABS: Absolute Neutrophils 0.2 10^3/uL (1.4-6.5)
[2024-02-22 13:53] LABS: Blood Urea Nitrogen 22 mg/dl (7-17); Calcium 7.8 mg/dl (8.4-10.2); Carbon Dioxide 34 mmol/L (22-30); Chloride 98 mmol/L (98-107); Estimated Creatinine Clearance 63 ml/min; Glucose 140 mg/dl (70-99); Potassium 2.9 mmol/L (3.5-5.1); Sodium 137 mmol/L (135-145); eGFR > 60.00
--- NOTE | 2024-02-22 14:01 | PTCARENOTE ---
Call rec'd from Jacqueline, Bed Warp Trucker at [place], asking for update on the patient. Update provided by this RN, per Jacqueline -no bed available for patient at this time, and patient is not stable enough for transfer to [facility]. Continuing plan of
care and awaiting patient and family's decision on her code status and goals of care at this time.
Family requested guide domestic tour to come to bedside, sonar subsystem equipment operator contacted. Admitting Representative and family in room to pray over patient at this time.
--- NOTE | 2024-02-22 16:05 | CHAP ---
Visited Sonali at 1:40, per nurse's request. Daughters and extended family were present, tearful. Emotional and spiritual support provided, along with a prayer blanket. Contacted [facility] to provide Reconciliation and Sacrament of the Sick.
Fr. Damon came promptly. Pastoral Care remains available to support Sonali and family.
--- NOTE | 2024-02-22 16:13 | PTCARENOTE ---
Daughter of patient informed RN that the patient has decided to make herself DNR/DNI. She would like comfort measures ordered. TT sent to Jenny Gardiner, Bandar, and Lillie to update. Daughters asking the RN if it's ok to sleep over with
patient. Permission given, emotional support provided.
--- NOTE | 2024-02-22 16:49 | W.PN.UPDATE ---
Update Note
Progress Note Update
Nurse informed me that patient has decided to be DO NOT RESUSCITATE and comfort measures. All orders are placed.
--- NOTE | 2024-02-22 17:36 | PTCARENOTE ---
DNR bracelet applied per orders.
Pt had 2nd large loose BM on bedpan, pericare provided with Desenex and barrier ointment at this time. Repositioned for comfort, pt with no further needs at this time.
[2024-02-22] MEDS: NON-FORMULARY ITEM 1 UNIT SC (19:59)
--- NOTE | 2024-02-22 20:39 | PTCARENOTE ---
Pt received at beginning of shift resting in bed with many family members supporting her. AAOx3. Is now DNR after long discussion with 'angel and daughters during the day. Currently on HF 50L/100% POX 90%. Now on comfort measures. Explained to pt and
one daughter plan of care re: use of Morphine and were appreciative of inclusion in care. VSS. Afebrile. Assessment as documented. Maintained on Q2hr turns. Call duarte remains within reach. Daughters will be staying the night with pt. Much emotional
support provided as needed.
[2024-02-22] MEDS: FLUSH (NSS) 2 FLUSH IV (21:35)
[2024-02-22] MEDS: MORPHINE SULFATE 2 MG IV (21:35)
[2024-02-22] MEDS: ATIVAN 0.5 MG PO (22:28)
--- NOTE | 2024-02-22 22:59 | PTCARENOTE ---
Pt's extended family left for the day. Numerous visitors here with pt. Two daughters remain for overnight. Pt requested Morphine stating 'my breathing feels heavy.' Medicated with Morphine as ordered. Approx 1 hour later pt requested something for
anxiety. Prn Ativan given as ordered. Continues on HF 50L/100% Current POX 79%. Appears more comfortable. Will continue to monitor.
[2024-02-23] VITALS: BP 130/53
[2024-02-23] MEDS: MAXIPIME 2000 MG IV (02:19)
[2024-02-23] MEDS: STERILE WATER FOR INJECTION 10 ML IV (02:19)
[2024-02-23] MEDS: ATIVAN 0.5 MG PO (02:26)
[2024-02-23] MEDS: SPIRIVA RESPIMAT 2.5 MCG INH (07:42)
[2024-02-23] MEDS: STRIVERDI RESPIMAT INH (07:42)
[2024-02-23] MEDS: MORPHINE SULFATE 2 MG IV ×4 (08:16→21:13)
--- NOTE | 2024-02-23 09:16 | W.PN.HOSP.TC ---
Today's Communication/Plan
-
comfort measures
Assessment / Plan
Assessment / Plan
02/22
Patient ordered restarted talking to physician.
Case discussed with patient daughter outside room
Daughter reports patient not complaining any overt dyspnea, per RN patient requiring 1 dose of morphine only in the morning
Some reported anxiety
Oxygen requirement stable on high flow
No other acute issues reported
Patient to be weaned off of high flow and transition to mid flow.
Morphine drip ordered to be used once oxygen weaning done
Questions answered with best understanding of the situation
Assistant Manager Quality Management notified about patient decision of not wanting to be seen by physicians as well.
Hospice consulted for support.
Stopping all life prolonging medication.

CT chest PE
1. No evidence of pulmonary embolism.
2. Re-demonstration of left-sided lung mass with increased left-sided airway obliteration and associated left lung atelectasis.
3. Severe right lower lobe atelectasis, progressed.
4. Large left-sided pleural effusion, progressed.
5. Stable small pericardial effusion.
6. Slightly progressed mediastinal lymphadenopathy.

1. Acute on chronic hypoxic respiratory failure
-Secondary to complex left pleural effusion causing left lung collapse and right lower lobe atelectasis/pneumonia
-patient rapidly worsening hypoxia and requiring 15 L through mid flow in ER.
-Overnight oxygen requirement worsened and initially required CPAP followed by high flow support currently
-ABG done in night showing pCO2 of 42 and pO2 of 52
-CT chest PE done with multiple risk factor of being off of Eliquis/perihilar small cell lung cancer possibly invading vasculature. no PE was found
2. Left lung SCC
-Recent diagnosis at and patient getting cancer care at [facility]
-post chemo round #1 last week
-[facility] accepted patient for transfer to their care but needs to be stable for transfer
3. Left sided malignant pleural effusion
-Patient known to have recurrent left-sided effusion
-Patient underwent thoracentesis of 01/19 of 2 L serosanguineous fluid. Cytopathology positive for small cell cancer.
-Repeat thoracentesis on 01/21 with drainage of 1.2 L serosanguineous pleural fluid
-Third thoracentesis on 01/30 with drainage of 2 L straw pleural fluid
-For thoracentesis on 02/08 with drainage of 1 L sanguinous pleural fluid
-[facility] attempted thoracentesis on 02/13 but was unsuccessful. According to verbal report [facility] attempted on 02/18 which was unsuccessful as well.
-Discussed with pulmonology/[facility] and patient may require Pleurx tube vs CT tube. I have reviewed CT chest images personally and there is significant layering on effusion and with malignancy/exudative nature of fluid possibly too viscous to be
drained.
4. Pancytopenia
- TWBC 0.5, Plt 10 today
- got half infusion of Neulasta, maintained on Neupogen.
- transfuse PRN hbg < 7 or Plt < 10 or bleeding with 50K
We have discussed at length with family that patient at this point have a sizable left side malignant pleural effusion which is likely not amenable to drainage. Also patient severely thrombocytopenic and at risk of bleeding. Multidisciplinary
evaluation was done including interventional radiology, in his opinion even if drainable left perihilar mass likely compressing bronchus and left lung probably not irrigating to expand enough after thoracentesis. Overall patient condition remains
poor with prognosis grim at this point.
This has been clarified with all the consultants on board and bedside discussion was done with both daughters.

Anticipated Discharge: Within 24 hours
Subjective/Interval History
-
Date of Service: February 23, 2024
Patient ordered restarted talking to physician.
Case discussed with patient daughter outside room
Daughter reports patient not complaining any overt dyspnea, per RN patient requiring 1 dose of morphine only in the morning
Some reported anxiety
Oxygen requirement stable on high flow
No other acute issues reported
Objective Data
-
Vital Signs:
Vital Signs
Temp Pulse Resp BP Pulse Ox
98.4 F 78 23 116/56 82
02/22/24 20:23 02/22/24 22:00 02/22/24 22:00 02/22/24 20:21 02/23/24 08:15
I&O
02/22/24 02/23/24 02/24/24
06:59 06:59 06:59
Intake Total 770 / 770 850 / 850
Output Total 1000 / 1000 1050 / 1050
Balance -230 / -230 -200 / -200
Review of Systems
-
Unable to obtain full review of systems at this time due to: Other (Declined to be seen by physician)
--- NOTE | 2024-02-23 09:34 | W.PN.UPDATE ---
Update Note
Progress Note Update
Update:
Notified patient now comfort measures and DNR, she does not wish to see any providers today.
We will respect patient's wishes.
Will sign off at this time, please call with any questions.
[2024-02-23 09:41] VITALS: BP 113/60
[2024-02-23] MEDS: STERILE WATER FOR INJECTION IV ×2 (11:18→15:21)
[2024-02-23] MEDS: ZYLOPRIM PO (11:18)
[2024-02-23] MEDS: ZYRTEC PO (11:18)
--- NOTE | 2024-02-23 11:23 | CM ---
Addendum entered by Thelma Correa 02/23/24 11:32:
VM left for admissions to add maurizior/Liyah Blair to contacts [phone] per pt request
Original Note:
CM met with pt and daughter/Lauren and Liyah bedside
Pt on neutropenic precautions and placed on comfort care
Hospice consult placed and request for GIP admission
Pt currently in IMU with 02 needs
Referral sent to Caitie/hospice on-call
Awaiting GIP assessment
Discharge Disposition- comfort vs GIP
--- NOTE | 2024-02-23 12:50 | PTCARENOTE ---
Patient is on comfort care, has had 2 periods of dyspnea relieved with Morphine 1mg IV dose per doctors orders. Oxygen currently being weaned by respiratory, patient is on lowest high flow setting at this time. Pulse ox in the 80s, respiratory rate
in the low 20s at this time. Family at bedside communicating with medical team. [employer] Agent following. Patient is stating that she is feeling fine right now, not requiring any medications at this time.
--- NOTE | 2024-02-23 13:43 | PTCARENOTE ---
Patient weaned to lowest nonrebreather setting, informed respiratory staff that she did want to oxygen to be lowered any further at this time. Pulse ox 83%, patiet stating that she has no pain and that her breathing is comfortable. No dose of
Morphine needed at this time.
--- NOTE | 2024-02-23 14:14 | HOSPNOTE ---
Spoke with the patients daughter Tatyana this afternoon. Hospice philosophy was explained to her . Patient will be placed on comfort measure today and GIP Hospice tomorrow morning. Tatyana was given Hospice phone number for any additional
questions.
[2024-02-23 15:10] VITALS: BP 108/53
--- NOTE | 2024-02-23 15:45 | PTCARENOTE ---
Patient and daughter educated about plan of care, oxygen weaning, pain management. Patient comfortable and weaned to 15 liters, mid-flow cannula after approval from patient. Patient denying pain or feelings of respiratory distress when asked at this
time. Pulse ox in the high 70s while sitting up in bed. Family visiting at bedside.
[2024-02-23 16:00] VITALS: BP 101/52
--- NOTE | 2024-02-23 16:02 | CHAP ---
Checked in on Sonali and family - all were in good spirits. Sonali was very alert and engaged. Assured them that our support continues.
[2024-02-23 20:00] VITALS: BP 103/49
--- NOTE | 2024-02-23 22:40 | PTCARENOTE ---
Addendum entered by Yessica Shah RN 02/24/24 06:28:
Assessment of Pt this AM. Pt appearing comfortable respirations even, RR 18. Pt weaned to 10L midflow over night SPO2 76-78%. Pt appearing comfortable Daughters would not like her to be turned at this time, will pass on to day shift RN.
Original Note:
Pt appearing comfortable at this time. Respirations even, RR 19, PRN morphine has been give (see MAR). Pt reporting no pain at this time. Pt daughters at bed side.
[2024-02-24] VITALS: BP 112/57
[2024-02-24] MEDS: MORPHINE SULFATE 2 MG IV ×2 (03:24→08:49)
--- NOTE | 2024-02-24 08:59 | W.PN.HOSP.TC ---
Today's Communication/Plan
-
Continue Comfort Care
Assessment / Plan
Assessment / Plan
Physical Exam
General: No Apparent Distress
HEENT: Oxygen (10 L midflow nasal cannula)
Respiratory: Decreased breath sounds bilaterally
Cardiac: Regular Rhythm and S1/S2
GI: Soft, Nontender and Nondistended
Musculoskeletal: No cyanosis
Neuro: Awake, Alert, Oriented and No Motor Deficits
Assessment/Plan

CT chest PE
1. No evidence of pulmonary embolism.
2. Re-demonstration of left-sided lung mass with increased left-sided airway obliteration and associated left lung atelectasis.
3. Severe right lower lobe atelectasis, progressed.
4. Large left-sided pleural effusion, progressed.
5. Stable small pericardial effusion.
6. Slightly progressed mediastinal lymphadenopathy.

1. Acute on chronic hypoxic respiratory failure secondary to complex left pleural effusion causing left lung collapse and right lower lobe atelectasis/pneumonia
2. Left lung SCC
3. Left sided malignant pleural effusion
4. Pancytopenia
Dr. Whitten discussed at length with patient's family that patient at this point has a sizable left-sided malignant pleural effusion which is likely not amenable to drainage. Also patient severely thrombocytopenic and at risk of bleeding.
Multidisciplinary evaluation was done including interventional radiology, in their opinion even if drainable left perihilar mass likely compressing bronchus and left lung probably not irrigating to expand enough after thoracentesis. Overall patient
condition remains poor with prognosis grim at this point.
This has been clarified with all the consultants on board and bedside discussion was done with both daughters.
I spoke to patient and patient's family (including patient's daughters) today and they all confirmed patient is comfort care.
-Continue Comfort Care measures

Anticipated Discharge: > 48 hours
Subjective/Interval History
-
Date of Service: February 24, 2024
Patient was seen and examined. She reported no pain, discomfort or shortness of breath.
Objective Data
-
Vital Signs:
Vital Signs
Temp Pulse Resp BP Pulse Ox
98.2 F 92 17 112/57 78
02/24/24 07:45 02/24/24 06:00 02/24/24 06:00 02/24/24 00:00 02/24/24 03:30
I&O
02/23/24 02/24/24 02/25/24
06:59 06:59 06:59
Intake Total 850 / 850 200 / 200 100 / 100
Output Total 1050 / 1050 600 / 600
Balance -200 / -200 -400 / -400 100 / 100
--- NOTE | 2024-02-24 09:24 | HOSPNOTE ---
Spoke with family and explained hospice and the philosophy. Patient will be admitted inpatient hospice today. Admissions was called and Attending was informed and case management.
[2024-02-24 10:42] VITALS: BP 106/58
--- NOTE | 2024-02-24 11:45 | PTCARENOTE ---
Report given to Nighat RN for transfer to room 2133 for hospice care. Home medications from refridgerator returned to daughter, Yoselyn. Belongings packed up by family. Patient and family educated about plan of care.
[2024-02-24 12:19] VITALS: BP 143/81
--- NOTE | 2024-02-24 12:22 | PTCARENOTE ---
Received pt from IMU with RN at bedside, 10L midflow, pt resting comfortably with family at bedside.
--- NOTE | 2024-02-24 12:48 | W.DCSUMMARY ---
Discharge Summary
Discharge Data
Date of Admission: 02/21/24
Date of Discharge: 02/24/24
Total time spent discharging patient (in min): 45
-
Pending Results: No
Hospital Course
64 y/o female with a past medical history of presumed stage IV small cell lung carcinoma on chemotherapy, COPD, CHF, chronic respiratory failure on 3 L at baseline had an abrupt onset of dyspnea as well as hypoxia to the high 70s at home on pulse ox
currently requiring 15 L mid flow oxygen and saturating in the low 90s. Patient was noted to get her chemotherapy at [facility] and wanted to be transferred there once a bed was available; patient's oncologist were at [facility] and she was advised to
come to [facility] in the interim until a bed was available for her. Labs on admission demonstrated a white blood cell count of 0.3, ANC of 0, hemoglobin of 6.7 and platelets of 19. CT Chest was done and showed no PE. Patient was also noted
to have complex left lung mass with left pleural effusion which was unable to be drained, pre reports, there was plan for patient to have a CT chest tube placed with tPA/DNase instillation for this part; emergency room provider discussed this with
[facility] oncology PA who is accepted the patient although a bed was unavailable. Two unit blood transfusion were given. Patient's hypoxia worsened during the hospitalization. Pulmonary was consulted, and patient's prognosis was noted to be
exceedingly poor. Oncology was also consulted, Interventional Radiology was also consulted for evaluation for thoracentesis but interventional radiologist did not think any attempted drainage would be beneficial. Goals of care discussion was held
with the patient. Patient chose to change her Code Status to DNR and also begin Comfort Measures.
Discharge Plan
-
Patient Disposition: Hospice - Inpatient
Discharge Diagnosis/Procedures: Acute on chronic hypoxic respiratory failure secondary to complex left pleural effusion causing left lung collapse and right lower lobe atelectasis/pneumonia
Left lung SCC
Left sided malignant pleural effusion
Pancytopenia
Condition: Serious
Diet: As tolerated
Activity: As tolerated
Referrals:
Ysabel Pereira DO [Family Provider] -
Prescriptions:
Discontinued
amlodipine 10 mg tablet
10 mg PO Daily
cetirizine 10 mg Tablet
10 mg PO DAILY Qty: 0 0RF
levothyroxine 100 mcg Tablet
100 mcg PO SUMOTUWETHFR
furosemide 40 mg Tablet
40 mg PO DAILY
carvedilol 12.5 mg Tablet
12.5 mg PO BID
ondansetron 8 mg Tablet,Disintegrating
8 mg PO Q8HPRN PRN (Reason: nausea)
levothyroxine 100 mcg Tablet
200 mcg PO SA
allopurinol 300 mg Tablet
300 mg PO DAILY
levofloxacin 750 mg Tablet
750 mg PO HS
Patient Comments:
02/21/24: filled 02/18/24 for 7 tablets, to take 1 tablet once a day for 7 days
Anoro Ellipta 62.5-25 mcg/actuation Blister With Device
1 inh INHALATION R DAILY
Neupogen 480 mcg/0.8 mL Syringe
480 mcg SC DAILY
Discharge Orders:
Discharge Patient (As Directed); Ordered 02/24/24
Ordered By: Dani Cohen
Discharge Date and Time
Discharge Date/Time: 02/24/24 12:53
Print Language: PALESTINIAN
--- NOTE | 2024-02-24 14:59 | CM ---
Patient with Hx lung cancer with Dx Acute on chronic hypoxic respiratory failure, malignant pleural effusion, left lung collapse, RLL atelectasis/pneumonia.
Spoke with [facility]; patient will be staying here in [facility].
Plan [facility].
== END 2024-02-24 12:53 | disposition hospice, inpatient (51) | DRG 180 ==
LOC: 2 NORTH 15:57
PROVIDERS: Nurse Practitioner Gerontology; Physician Assistant; Student in an Organized Health Care Education/Training Program; ADMITTING PHYSICIAN Hospitalist; ATTENDING PHYSICIAN Hospitalist; CONSULT PHYSICIAN Internal Medicine Critical Care Medicine; CONSULT PHYSICIAN Internal Medicine Hematology & Oncology; EMERGENCY PHYSICIAN Emergency Medicine; FAMILY PHYSICIAN Internal Medicine
PROC: 30233N1 Transfusion of Nonautologous Red Blood Cells into Peripheral Vein, Percutaneous Approach (ICD-10-PCS; 2024-02-21)
DX: C34.12 Malignant neoplasm of upper lobe, left bronchus or lung (principal); D61.811 Other drug-induced pancytopenia; J96.21 Acute and chronic respiratory failure with hypoxia; J18.9 Pneumonia, unspecified organism; I50.32 Chronic diastolic (congestive) heart failure; Z68.41 Body mass index [BMI] 40.0-44.9, adult; J98.11 Atelectasis; J91.0 Malignant pleural effusion; J44.9 Chronic obstructive pulmonary disease, unspecified; I11.0 Hypertensive heart disease with heart failure; E87.6 Hypokalemia; E66.01 Morbid (severe) obesity due to excess calories
CPT/HCPCS: 36430; 36600; 71045; 71275; 80048; 80053; 82805; 83735; 84484; 85014; 85018; 85025; 86850; 86900; 86901; 86920; 87040; 93005; 94640; 94660; 96374; 99285; J1447; P9016; Q9967

== ENCOUNTER 2024-02-24 12:54 | Inpatient (IN) | payer OTHER, SELFPAY ==
[2024-02-24 12:35] VITALS: BP 143/81
--- NOTE | 2024-02-24 13:04 | PTCARENOTE ---
Pt received at noon from IMU, chart just flipped now, inputting information from old chart to new chart now. Pt seen by this RN and agricultural research director, she is resting comfortably in bed at this time.
--- NOTE | 2024-02-24 13:06 | CM ---
Reviewed the chart notes. Patient transferred to unit today. CM continues to be available to patient/family and is monitoring medical plan for needs at discharge.
Plan: GIP Hospice.
--- NOTE | 2024-02-24 13:23 | ADM.HSP ---
Admission - Hospice
History of Present Illness
Please see the discharge summary from February 24, 2024; that discharge summary will serve as the History of Present Illness here.
Physical Exam
Pulse Ox
70
02/24/24 13:08
General: No Apparent Distress and Comfortable
Respiratory: Decreased Breath Sounds
Cardiology: S1/S2
GI: Soft and Nontender
Musculoskeletal: No Cyanosis
Neuro: Awake and Alert
--- NOTE | 2024-02-24 14:42 | HOSPNOTE ---
Patient has been admitted GIP level of hospice care. Patient is presently on 10L of oxygen mid flow and remains short of breath requiring multiple pushes of IV Morphine and anticipate that patient will require morphine infusion. Patient also has
intermittent anxiety that requires IVP Ativan PRN. Patient will need to remain inpatient hospice for shortness of breath that will require IV medications. Dr. Cohen and Dr. Morrison are in agreement with inpatient hospice. Patient signed her own
consents. Family at bedside and in agreement with patients decision. Patient needs assistance with POA and Living Will Documents- I notified our POWER ELECT[employer] RESEARCH ENGINEER for assistance. Informal report with DAMIEN Disla, she is in agreement with current plan. Patient will be
seen daily by hospice.
[2024-02-24] MEDS: MORPHINE SULFATE 1 MG IV ×3 (15:02→18:26)
[2024-02-24] MEDS: MORPHINE 100 IV (18:45)
--- NOTE | 2024-02-24 18:55 | PTCARENOTE ---
Pt received 3 doses of morphine within 4 hour time frame. Per protocol, morphine gtt was begun at step 1: 1mg/hr at 1851. Family at bedside.
[2024-02-24 19:30] VITALS: BP 136/72
[2024-02-24] MEDS: ROBINUL 0.2 MG IV (20:21)
[2024-02-25] MEDS: ATIVAN 2 MG IV ×2 (03:23→09:33)
--- NOTE | 2024-02-25 09:58 | PTCARENOTE ---
shortly after turning, repositioning and cleaning patient, no breathing was noted. no heart sounds. family at bedside, support given. Dr Gonzalez notified to pronounce . gift of life notified.
--- NOTE | 2024-02-25 10:01 | W.PN.DEATH ---
Pronouncement of
-
Called to see patient to pronounce.
No spontaneous heart tones or respirations noted.
Patient not responsive to verbal stimuli.
Patient is pronounced .
Time of : 09:58
Date of : 02/25/24
Cause of : Acute Hypoxic Respiratory Failure, Pleural Effusion, Lung Cancer
Family Notified: Yes
--- NOTE | 2024-02-25 10:36 | W.PN.HOSP.TC ---
Today's Communication/Plan
-
Patient was on comfort care, later in the day she passed (see Summary)
Assessment / Plan
Assessment / Plan
Physical Exam (prior to patient's today)
General: Not in acute distress
HEENT: Normocephalic
Respiratory: Decreased breath sounds bilaterally
Cardiac: Regular Rhythm and S1/S2
GI: Soft, Nontender and Nondistended
Musculoskeletal: No cyanosis
Neuro: Awake, Alert, Oriented and No Motor Deficits
Assessment/Plan

CT Chest PE
1. No evidence of pulmonary embolism.
2. Re-demonstration of left-sided lung mass with increased left-sided airway obliteration and associated left lung atelectasis.
3. Severe right lower lobe atelectasis, progressed.
4. Large left-sided pleural effusion, progressed.
5. Stable small pericardial effusion.
6. Slightly progressed mediastinal lymphadenopathy.

Acute on chronic hypoxic respiratory failure secondary to complex left pleural effusion causing left lung collapse and right lower lobe atelectasis/pneumonia
Left lung SCC
Left sided malignant pleural effusion
Pancytopenia
Dr. Whitten, Dr. Portillo (pulmonary), and Dr. Alvarado discussed at length with patient's family that patient at this point has a sizable left-sided malignant pleural effusion which is likely not amenable to drainage. Also patient is severely
thrombocytopenic and at risk of bleeding. Multidisciplinary evaluation was done including interventional radiology, in their opinion even if drainable. left perihilar mass likely compressing bronchus and left lung probably not irrigating to expand
enough after thoracentesis. Overall patient condition was noted to be poor with grim prognosis - this was clarified with all the consultants on board and bedside discussion was done (by hospitalist team and consultants/specialists) with both of
patient's daughters.
Anticipated Discharge: Today
Subjective/Interval History
-
Date of Service: February 25, 2024
Patient was seen and examined. She was in comfort care, and per nurse may have demonstrated some seizure activity this morning.
Objective Data
-
Vital Signs:
Vital Signs
Temp Pulse Resp BP Pulse Ox
95.7 F L 94 24 136/72 72
02/25/24 07:06 02/24/24 19:30 02/24/24 19:30 02/24/24 19:30 02/24/24 19:42
I&O
02/24/24 02/25/24 02/26/24
06:59 06:59 06:59
Intake Total 100 / 100
Balance 100 / 100
--- NOTE | 2024-02-25 11:25 | HOSPNOTE ---
Met with family and supported. Told family that patient's was imminent. Patient was on a morphine drip and appeared comfortable at this time. Patient was washed new gown was placed and mouth care performed. Family came back in room and patient
shortly after their arrival. At this time there is more family still arriving. Emotional support provided.
== END 2024-02-25 09:58 | disposition expired | DRG 951 ==
LOC: 2 NORTH 12:54
PROVIDERS: ADMITTING PHYSICIAN Hospitalist
DX: Z51.5 Encounter for palliative care (principal); J96.21 Acute and chronic respiratory failure with hypoxia; J18.9 Pneumonia, unspecified organism; J98.11 Atelectasis; J98.19 Other pulmonary collapse; C34.92 Malignant neoplasm of unspecified part of left bronchus or lung; J91.0 Malignant pleural effusion; D61.818 Other pancytopenia